=== PATIENT | female | born 1940 | race Caucasian/White ===

== ENCOUNTER 2021-11-23 09:30 | Outpatient (RCR) | payer MEDICARE, BC, SELFPAY | END 2022-01-28 11:10 | disposition home or self-care (01) | PROVIDERS: PCP Physician Assistant Medical; Visit Provider Physician Assistant Medical | DX: M48.061 Spinal stenosis, lumbar region without neurogenic claudication (principal); Z51.89 Encounter for other specified aftercare | CPT/HCPCS: 97110; 97140 ==

== ENCOUNTER 2021-11-24 09:37 | Outpatient (CLI) | payer MEDICARE, BC, SELFPAY | END 2021-11-24 09:38 | disposition home or self-care (01) | LOC: INJ CL 09:38 | PROVIDERS: PCP Physician Assistant Medical; Visit Provider Family Medicine | DX: M48.062 Spinal stenosis, lumbar region with neurogenic claudication (principal); M54.16 Radiculopathy, lumbar region | CPT/HCPCS: 64483; J1100; Q9966 ==

== ENCOUNTER 2023-03-28 14:30 | Outpatient (RCR) | payer MEDICARE, BC, SELFPAY | END 2023-07-18 16:48 | disposition home or self-care (01) | PROVIDERS: PCP Physician Assistant Medical; Visit Provider Physician Assistant Medical | DX: M51.16 Intervertebral disc disorders with radiculopathy, lumbar region (principal); R26.81 Unsteadiness on feet; R53.1 Weakness; R52 Pain, unspecified; Z51.89 Encounter for other specified aftercare | CPT/HCPCS: 97110; 97162 ==

== ENCOUNTER 2024-03-01 13:45 | Outpatient (RCR) | payer MEDICARE, BC, SELFPAY ==
--- OUTSIDE RECORDS SUMMARY | 2024-02-14 15:01 | XMS_ITS | Continuity of Care Document ---
Author Organization [facility] [place] Address [address] [place] [address] Assessment No assessment recorded. Plan of Treatment Reminders Order Date Submit Date Provider Last Modified By Organization Details Last Modified Time Details Appointments DC Treatment 20 2023 02:20P M Sola Cisneros DC Not available Not available Not available DC Treatment 2024 02:00P M Sola Cisneros DC Not available Not available Not available Lab None recorded. Referral None recorded. Procedures None recorded. Surgeries None recorded. Imaging None recorded. Medication Orders None recorded. Patient TargetsNo targets recorded. Patient Instructions Encounter Date Encounter Id Patient Instructions Last Modified By Organization Details Last Modified Time 01/18/2024 [id number] functional goals : increase ROM to wnl, 55% decrease pain when sitting for 60 minutes to 1-2/10, 45 minutes decrease geraldo when standing for 60 minutes to 1-2/10, 40 minutes decrease pain when transitioning from sitting to standing to 1-2/10, 4-5/10 [email or web address] Not available 01/18/2024 13:50:29 Reason for Referral None Reported. Problems Name Problem SNOMED Code Status Onset Date Resolution Date Notes Provider Name and Address Organization Details Recorded Time Neck pain 85184060 Active 2023 Sola Cisneros DC [address], [place], [address], [facility] 4 14:35:25 Cervical segmental dysfunction 084624562 Active 2023 Sola Cisneros DC [address], [place], [address], [facility] 4 14:35:25 Lumbar segmental dysfunction 650915264 Active 2023 Sola Cisneros DC [address], [place], [address], [facility] 4 18:13:38 Low back pain 903892861 Active 2023 Sola Cisneros DC [address], [place], [address], [facility] 4 18:13:40 Somatic dysfunction of sacral spine 931952337 Active 2023 Sola Cisneros DC [address], [place], [address], [facility] 4 18:13:43 Thoracic segmental dysfunction 063043073 Active 2023 Sola Cisneros DC [address], [place], [address], [facility] 4 18:13:47 Thoracic back pain 478501162 Active 2023 Sola Cisneros DC [address], [place], [address], [facility] 4 18:13:49 Problem Notes None recorded. Procedures Surgical History Date Name Laterality Status Provider Name and Address Organization Details Recorded Time 4 41408: Spinal manipulation , 3 to 4 regions completed CASH BRIGGS, ED [address], [place], [address], [facility] 01/31/2024 09:01:39 4 23455: Spinal manipulation , 3 to 4 regions completed Sola Amelia ED [address], [place], [address], [facility] 01/18/2024 13:29:35 4 43685: Spinal manipulation , 3 to 4 regions completed Sola Amelia, DC [address], [place], [address], [facility] 01/11/2024 10:26:34 4 68909: Spinal manipulation , 3 to 4 regions completed Sola Cisneros DC [address], [place], [address], [facility] 01/04/2024 11:54:22 4 32660: Spinal manipulation , 3 to 4 regions completed Sola Magnani, DC [address], [place], [address], [facility] 12/23/2023 10:22:43 4 40858: Spinal manipulation , 3 to 4 regions completed Sola Magnani, DC [address], [place], [address], [facility] 12/01/2023 10:26:04 4 80907: Spinal manipulation , 3 to 4 regions completed Sola Magnani, DC [address], [place], [address], [facility] 11/17/2023 13:17:18 4 65338: Spinal manipulation , 3 to 4 regions completed Sola Magnani, DC [address], [place], [address], [facility] 10/27/2023 14:35:24 4 69414: Spinal manipulation , 3 to 4 regions completed Sola Magnani, DC [address], [place], [address], [facility] 09/08/2023 10:41:24 4 59968: Spinal manipulation , 3 to 4 regions completed Sola Magnani, DC [address], [place], [address], [facility] 08/24/2023 12:43:44 4 71378: Spinal manipulation , 3 to 4 regions completed Sola Magnani, DC [address], [place], [address], [facility] 08/17/2023 12:40:41 35880: Spinal manipulation , 3 to 4 regions completed Sola Magnani, DC [address], [place], [address], [facility] 08/12/2023 11:53:41 4 11069: New patient E/M completed Sola Magnani, DC [address], [place], [address], [facility] 08/12/2023 12:00:35 Imaging Results None recorded. Procedure Notes None recorded. Medical Equipment None Reported. Medications Name Sig Start Date Stop Date Status Note LastModified by Organization Details LastModified Time doxycycline hyclate 100 mg capsule TAKE ONE CAPSULE BY MOUTH TWICE A DAY FOR 7 DAYS active Not Available Not Available No t Available prednisone 20 mg tablet FOR COUGH 3 TABLETS BY MOUTH SINGLE DOSE DAYS 1-2 THEN 2TABS SINGLE DOSE FOR DAYS 3-4 THEN 1TAB BY MOUTH DAYS 5-6 THEN D/C active Not Available Not Available No t Available doxycycline monohydrate 100 mg tablet TAKE ONE TABLET BY MOUTH TWO TIMES A DAY BEFORE BREAKFAST AND DINNER FOR 10 DAYS active Not Available Not Available No t Available tramadol 50 mg tablet TAKE ONE TABLET BY MOUTH THREE TIMES A DAY NEEDED FOR PAIN active Not Available Not Available No t Available simvastatin 40 mg tablet TAKE ONE TABLET BY MOUTH AT BEDTIME active Not Available Not Available No t Available levothyroxine 88 mcg tablet TAKE ONE TABLET BY MOUTH ONCE DAILY active Not Available Not Available No t Available citalopram 20 mg tablet TAKE 1&1/2 TABLETS BY MOUTH ONCE DAILY active Not Available Not Available No t Available doxycycline monohydrate 100 mg capsule TAKE ONE CAPSULE BY MOUTH TWO TIMES A DAY BEFORE MORNING AND EVENING MEALS FOR 7 DAYS active Not Available Not Available No t Available polymyxin B sulfate 10,000 unit-trimetho prim 1 mg/mL eye drops active Not Available Not Available No t Available bupropion HCl 75 mg tablet TAKE ONE TABLET BY MOUTH TWICE A DAY. DO NOT CRUSH OR CHEW. active Not Available Not Available No t Available triamterene 37.5 mg-hydrochlor othiazide 25 mg tablet TAKE ONE TABLET BY MOUTH EVERY MORNING active Not Available Not Available No t Available cefuroxime axetil 500 mg tablet TAKE ONE TABLET BY MOUTH TWICE A DAY FOR 10 DAYS active Not Available Not Available No t Available levofloxacin 500 mg tablet TAKE ONE TABLET BY MOUTH ONCE DAILY FOR 7 DAYS active Not Available Not Available No t Available albuterol sulfate HFA 90 mcg/actuation aerosol inhaler INHALE TWO PUFFS BY MOUTH EVERY 6 HOURS NEEDED FOR SHORTNESS OF BREATH OR WHEEZING active Not Available Not Available No t Available cefdinir 300 mg capsule TAKE ONE CAPSULE BY MOUTH EVERY 12 HOURS FOR 10 DAYS active Not Available Not Available No t Available fluticasone propionate 50 mcg/actuation nasal spray,suspens ion APPLY TWO SPRAYS IN THE AFFECTED NOSTRIL(S) EVERY DAY active Not Available Not Available No t Available metformin ER 500 mg tablet,extend ed release 24 hr TAKE ONE TABLET BY MOUTH ONCE DAILY WITH A MEAL active Not Available Not Available No t Available duloxetine 30 mg capsule,delay ed release TAKE ONE CAPSULE BY MOUTH ONCE DAILY FOR 2 WEEKS, THEN INCREASE TO TWO CAPSULES DAILY active Not Available Not Available No t Available duloxetine 60 mg capsule,delay ed release TAKE ONE CAPSULE BY MOUTH ONCE DAILY IN ADDITION TO 30MG CAPSULE active Not Available Not Available No t Available Vitals None Recorded Social History None recorded. Functional Status None recorded. Mental Status None recorded. Family History Nothing Reported. Medical History No medical history recorded. Gynecological HistoryNo gynecological history recorded. Obstetrics History GPAL:G 0 P 0 0 0 0 Past Encounters Encounter ID Performer Location Encounter Start Date Encounter Closed Date Diagnosis/Indication Diagnosis SNOMED-CT Code Diagnosis ICD10 Code [id number] [facility] [place] [address] [place] [address] 12/23/2023 12:34:59 12/23/2023 13:12:52 Lumbar segmental dysfunction 271787723 M99.03 Low back pain 790389281 M54.50 Somatic dy sfunction of sacral spine 143404466 M99.04 Thoracic s egmental dysfunction 173822691 M99.02 Thoracic back pain 73379 8004 M54.6 [id number] Sola Cisneros DC [facility] [place] [address] [place] [address] 01/04/2024 11:53:13 01/05/2024 21:22:58 Lumbar segmental dysfunction 156623298 M99.03 Low back pain 703593089 M54.50 Somatic dy sfunction of sacral spine 089009737 M99.04 Thoracic s egmental dysfunction 085814865 M99.02 Thoracic back pain 26263 8004 M54.6 [id number] Sola Cisneros DC [facility] [place] [address] [place] [address] 01/11/2024 12:06:16 01/11/2024 12:30:47 Lumbar segmental dysfunction 843518264 M99.03 Low back pain 524001576 M54.50 Somatic dy sfunction of sacral spine 989377938 M99.04 Thoracic s egmental dysfunction 959097983 M99.02 Thoracic back pain 31688 8004 M54.6 Cervical s egmental dysfunction 014269706 M99.01 [id number] Sola Cisneros DC [facility] [place] [address] [place] [address] 01/18/2024 13:29:02 01/18/2024 13:51:09 Lumbar segmental dysfunction 293478097 M99.03 Low back pain 519726712 M54.50 Somatic dy sfunction of sacral spine 807249523 M99.04 Thoracic s egmental dysfunction 031832673 M99.02 Thoracic back pain 23641 8004 M54.6 Health Concerns Section Related Observation LastModified by Organization Detai ls LastModified Time None Recorded Concern Status LastModified by Organization Details LastModified Time None Recorded Payers Encounter Date Sequence Insurance Name Policy Number Policy Sullivan Covered Member ID Sullivan Member ID Guarantor Name 01/18/2024 1 [place] [id number] Maddy Disla [id number] 5 Maddy Disla 01/18/2024 2 [facility] [id number] Maddy Disla [id number] Maddy Disla Notes Date Note Type Note Provider Name and Address Organization Details Recorded Time 01/18/2024 text/html HPI - Spine ComplaintsReported bypatient.Location:thor acic bilateral; lumbar bilateral; sacral bilateral Quality:dull; stiffness; tender; tightness; diffuse; changes with positional changes Severity:improving;pain level 3-4/10 Duration:several weeks Timing:chronic; recurrent episode Context:overuse; prior back problems Alleviating Factors:heat; OTC analgesics; physical therapy; stretching Aggravating Factors:ambulation; sitting; standing; positional changes Associated Symptoms:no bowel dysfunction; no bladder dysfunction; notes balance issues Prior Imaging:MRI; xray long history of back and hip pain. has had imaging and has stenosis but trying to avoid surgery. has seen chiropractors in the past with not much improvement. has been able to go upstairs with less difficulty and less weakness. less achiness in the SI joints and buttock region. has never had injections in the SI joints. a bit of a flare up after riding in the car for several hours Sola Cisneros, ED [address], [place], [address], [facility] 01/18/2024 13:50:58 OBGyn Episode No OBEpisode recorded.
--- OUTSIDE RECORDS SUMMARY | 2024-02-14 15:01 | XMS_ITS | Continuity of Care Document ---
Author Organization [facility] [place] Address [address] [place] [address] Assessment No assessment recorded. Plan of Treatment [...] Modified By Organization Details Last Modified Time 02/01/2024 [id number] functional goals : increase ROM to wnl, 55% decrease pain when sitting for 60 minutes to 1-2/10, 45 minutes decrease geraldo when standing for 60 minutes to 1-2/10, 40 minutes decrease pain when transitioning from sitting to standing to 1-2/10, 4-5/10 [email or web address] Not available 01/31/2024 09:01:39 Reason for Referral None Reported. Problems Name Problem SNOMED Code Status Onset Date Resolution Date Notes Provider Name and Address Organization Details Recorded Time Neck pain 13638331 Active 2023 Sola Cisneros DC [address], [place], [address], [facility] 4 14:35:25 Cervical segmental dysfunction 317838864 Active 2023 Sola Cisneros DC [address], [place], [address], [facility] 4 14:35:25 Lumbar segmental dysfunction 525435002 Active 2023 Sola Cisneros, DC [address], [place], [address], [facility] 4 18:13:38 Low back pain 744867109 Active 2023 Sola Cisneros, DC [address], [place], [address], [facility] 4 18:13:40 Somatic dysfunction of sacral spine 922625507 Active 2023 Sola Cisneros, DC [address], [place], [address], [facility] 4 18:13:43 Thoracic segmental dysfunction 219411395 Active 2023 Sola Cisneros DC [address], [place], [address], [facility] 4 18:13:47 Thoracic back pain 471014856 Active 2023 Sola Cisneros DC [address], [place], [address], [facility] 4 18:13:49 Problem Notes None recorded. Procedures Surgical History Date Name Laterality Status Provider Name and Address Organization Details Recorded Time 4 33299: Spinal manipulation , 3 to 4 regions completed CASH BRIGGS, ED [address], [place], [address], [facility] 01/31/2024 09:01:39 4 43226: Spinal manipulation , 3 to 4 regions completed Sola Amelia, DC [address], [place], [address], [facility] 01/18/2024 13:29:35 4 57865: Spinal manipulation , 3 to 4 regions completed Solakim Cisneros, DC [address], [place], [address], [facility] 01/11/2024 10:26:34 4 14026: Spinal manipulation , 3 to 4 regions completed Sola Cisneros DC [address], [place], [address], [facility] 01/04/2024 11:54:22 4 25626: Spinal manipulation , 3 to 4 regions completed Sola Magnani, DC [address], [place], [address], [facility] 12/23/2023 10:22:43 4 72846: Spinal manipulation , 3 to 4 regions completed Sola Magnani, DC [address], [place], [address], [facility] 12/01/2023 10:26:04 4 82167: Spinal manipulation , 3 to 4 regions completed Sola Magnani, DC [address], [place], [address], [facility] 11/17/2023 13:17:18 4 53202: Spinal manipulation , 3 to 4 regions completed Sola Magnani, DC [address], [place], [address], [facility] 10/27/2023 14:35:24 4 27875: Spinal manipulation , 3 to 4 regions completed Sola Magnani, DC [address], [place], [address], [facility] 09/08/2023 10:41:24 4 78061: Spinal manipulation , 3 to 4 regions completed Sola Magnani, DC [address], [place], [address], [facility] 08/24/2023 12:43:44 4 69069: Spinal manipulation , 3 to 4 regions completed Sola Magnani, DC [address], [place], [address], [facility] 08/17/2023 12:40:41 4 29742: Spinal manipulation , 3 to 4 regions completed Sola Magnani, DC [address], [place], [address], [facility] 08/12/2023 11:53:41 4 77256: New patient E/M completed Sola Magnani, DC [address], [place], [address], [facility] 08/12/2023 12:00:35 Imaging Results None recorded. Procedure [...] Diagnosis/Indication Diagnosis SNOMED-CT Code Diagnosis ICD10 Code [id number] Sola Cisneros DC [facility] [place] [address] [address] [place] [address] 01/04/2024 11:53:13 01/05/2024 21:22:58 Lumbar segmental dysfunction 603064700 M99.03 Low back pain 298318510 M54.50 Somatic dy sfunction of sacral spine 488530735 M99.04 Thoracic s egmental dysfunction 254417368 M99.02 Thoracic back pain 07716 8004 M54.6 [id number] Sola Cisneros DC [facility] [place] [address],[facility] [address] [place] [address] 01/11/2024 12:06:16 01/11/2024 12:30:47 Lumbar segmental dysfunction 144467100 M99.03 Low back pain 568577172 M54.50 Somatic dy sfunction of sacral spine 080218125 M99.04 Thoracic s egmental dysfunction 415236381 M99.02 Thoracic back pain 66913 8004 M54.6 Cervical s egmental dysfunction 946276341 M99.01 [id number] Sola Cisneros DC [facility] [place] [address] [place] [address] 01/18/2024 13:29:02 01/18/2024 13:51:09 Lumbar segmental dysfunction 500859830 M99.03 Low back pain 508809705 M54.50 Somatic dy sfunction of sacral spine 750072992 M99.04 Thoracic s egmental dysfunction 623340768 M99.02 Thoracic back pain 33671 8004 M54.6 [id number] CASH BRIGGS DC [facility] [place] [address] [place] [address] 02/01/2024 12:57:48 02/01/2024 13:17:16 Lumbar segmental dysfunction 500777773 M99.03 Low back pain 072659491 M54.50 Somatic dy sfunction of sacral spine 609332550 M99.04 Thoracic s egmental dysfunction 193009585 M99.02 Thoracic back pain 99668 8004 M54.6 Health Concerns Section Related Observation LastModified by Organization Detai ls LastModified Time None Recorded Concern Status LastModified by Organization Details LastModified Time None Recorded Payers Encounter Date Sequence Insurance Name Policy Number Policy Sullivan Covered Member ID Sullivan Member ID Guarantor Name 02/01/2024 1 [place] [employer] Maddy Disla [id number] 5 Maddy Disla 02/01/2024 2 [facility] [id number] Maddy Disla [id number] Maddy Disla Notes Date Note Type Note Provider Name and Address Organization Details Recorded Time 02/01/2024 text/html HPI - Spine ComplaintsReported bypatient.Location:thor acic [...] never had injections in the SI joints. CASH BRIGGS [address], [place], [address], [facility] 02/01/2024 13:17:08 OBGyn Episode No OBEpisode recorded.
--- OUTSIDE RECORDS SUMMARY | 2024-02-14 15:01 | XMS_ITS | Data Portability ---
Author Organization [place] - [employer] claire [facility] Address [address] [place] [address] Assessment No assessment recorded. Plan of Treatment Reminders Order Date Submit Date Provider Last Modified By Organization Details Last Modified Time Details Appointments DC Treatment 2023 02:20P M Sola Cisneros DC Not available Not available Not available DC Treatment 2024 02:00P Basilio Sola Cisneros DC Not available Not available Not available Lab None recorded. Referral None recorded. Procedures None recorded. Surgeries None recorded. Imaging None recorded. Medication Orders None recorded. Patient TargetsNo targets recorded. Patient Instructions Encounter Date Encounter Id Patient Instructions Last Modified By Organization Details Last Modified Time 12/23/2023 [id number] functional goals : increase ROM to wnl, 50% decrease pain when sitting for 60 minutes to 1-2/10, 35 minutes decrease geraldo when standing for 60 minutes to 1-2/10, 35 minutes decrease pain when transitioning from sitting to standing to 1-2/10, 4-6/10 [email or web address] Not available 12/23/2023 13:12:09 01/04/2024 [id number] functional goals : increase ROM to wnl, 50% decrease pain when sitting for 60 minutes to 1-2/10, 40 minutes decrease geraldo when standing for 60 minutes to 1-2/10, 35 minutes decrease pain when transitioning from sitting to standing to 1-2/10, 4-5/10 [email or web address] Not available 01/05/2024 21:21:52 01/11/2024 [id number] functional goals : increase ROM to wnl, 50% decrease pain when sitting for 60 minutes to 1-2/10, 40 minutes decrease geraldo when standing for 60 minutes to 1-2/10, 35 minutes decrease pain when transitioning from sitting to standing to 1-2/10, 4-5/10 mmagnani Not available 01/11/2024 10:26:34 01/18/2024 [id number] functional goals : increase ROM to wnl, 55% decrease pain when sitting for 60 minutes to 1-2/10, 45 minutes decrease geraldo when standing for 60 minutes to 1-2/10, 40 minutes decrease pain when transitioning from sitting to standing to 1-2/10, 4-5/10 [email or web address] Not available 01/18/2024 13:50:29 02/01/2024 [id number] functional goals : increase ROM to wnl, 55% decrease pain when sitting for 60 minutes to 1-2/10, 45 minutes decrease geraldo when standing for 60 minutes to 1-2/10, 40 minutes decrease pain when transitioning from sitting to standing to 1-2/10, 4-5/10 [email or web address] Not available 01/31/2024 09:01:39 Reason for Referral None Reported. Problems Name Problem SNOMED Code Status Onset Date Resolution Date Notes Provider Name and Address Organization Details Recorded Time Neck pain 05557518 Active 2023 Sola Cisneros DC [address], [place], [address], Pending sale to [facility] 4 14:35:25 Cervical segmental dysfunction 101544134 Active 2023 Sola Cisneros DC [address], [place], [address], Pending sale to [facility] 4 14:35:25 Lumbar segmental dysfunction 575459871 Active 2023 Sola Cisneros DC [address], [place], [address], Pending sale to [facility] 4 18:13:38 Low back pain 800824059 Active 2023 Sola Cisneros DC [address], [place], [address], Pending sale to [facility] 4 18:13:40 Somatic dysfunction of sacral spine 822845304 Active 2023 Sola Cisneros DC [address], [place], [address], Pending sale to [facility] 4 18:13:43 Thoracic segmental dysfunction 877497969 Active 2023 Sola Neftalynatalia, DC [address], [place], [address], Pending sale to [facility] 4 18:13:47 Thoracic back pain 044488092 Active 2023 Solakim Cisneros, DC [address], [place], [address], Pending sale to [facility] 4 18:13:49 Problem Notes None recorded. Procedures Surgical History Date Name Laterality Status Provider Name and Address Organization Details Recorded Time 4 21159: Spinal manipulation , 3 to 4 regions completed CASH BRIGGS, DC [address], [place], [address], Pending sale to [facility] 01/31/2024 09:01:39 4 37923: Spinal manipulation , 3 to 4 regions completed Sola Cisneros, DC [address], [place], [address], Pending sale to [facility] 01/18/2024 13:29:35 4 65998: Spinal manipulation , 3 to 4 regions completed Sola Magnani, DC [address], [place], [address], Pending sale to [facility] 01/11/2024 10:26:34 4 02159: Spinal manipulation , 3 to 4 regions completed Sola Cisneros, DC [address], [place], [address], Pending sale to [facility] 01/04/2024 11:54:22 4 22719: Spinal manipulation , 3 to 4 regions completed Sola Magnani, DC [address], [place], [address], Pending sale to [facility] 12/23/2023 10:22:43 4 53435: Spinal manipulation , 3 to 4 regions completed Sola Magnani, DC [address], [place], [address], Pending sale to [facility] 12/01/2023 10:26:04 4 80202: Spinal manipulation , 3 to 4 regions completed Sola Magnani, DC [address], [place], [address], Pending sale to [facility] 11/17/2023 13:17:18 4 74179: Spinal manipulation , 3 to 4 regions completed Soal Cisneros DC [address], [place], [address], Pending sale to [facility] 10/27/2023 14:35:24 4 41890: Spinal manipulation , 3 to 4 regions completed Sola Cisneros, ED [address], [place], [address], Pending sale to [facility] 09/08/2023 10:41:24 4 83874: Spinal manipulation , 3 to 4 regions completed Sola Cisneros, ED [address], [place], [address], Pending sale to [facility] 08/24/2023 12:43:44 4 28214: Spinal manipulation , 3 to 4 regions completed Sola Cisneros, ED [address], [place], [address], Pending sale to [facility] 08/17/2023 12:40:41 4 70857: Spinal manipulation , 3 to 4 regions completed ED [address], [place], [address], Pending sale to [facility] 08/12/2023 11:53:41 4 46827: New patient E/M completed Sola Cisneros DC [address], [place], [address], Pending sale to [facility] 08/12/2023 12:00:35 Imaging Results None recorded. Procedure [...] Diagnosis/Indication Diagnosis SNOMED-CT Code Diagnosis ICD10 Code [id number] Sola ED Cisneros - [place] [address] [place] [address] 08/12/2023 11:49:22 08/14/2023 18:15:18 Thoracic segmental dysfunction 772619996 M99.02 Lumbar seg mental dysfunction 436202461 M99.03 Low back pain 328073096 M54.50 Somatic dy sfunction of sacral spine 179906242 M99.04 Thoracic back pain 76934 8004 M54.6 [id number] ED RouseN - [place] [address] [place] [address] 08/17/2023 12:39:19 08/17/2023 14:53:13 Thoracic segmental dysfunction 058540514 M99.02 Lumbar seg mental dysfunction 477042467 M99.03 Low back pain 857995907 M54.50 Somatic dy sfunction of sacral spine 634087125 M99.04 Thoracic back pain 27553 8004 M54.6 [id number] ED RouseN - [place] [address] [place] [address] 08/24/2023 12:41:05 08/24/2023 15:37:56 Thoracic segmental dysfunction 074489114 M99.02 Lumbar seg mental dysfunction 256535362 M99.03 Low back pain 430575841 M54.50 Somatic dy sfunction of sacral spine 622867597 M99.04 Thoracic back pain 73382 8004 M54.6 [id number] ED RouseN - [place] [address] [place] [address] 09/08/2023 10:40:07 09/08/2023 15:55:35 Thoracic segmental dysfunction 963870800 M99.02 Lumbar seg mental dysfunction 831127171 M99.03 Low back pain 862452520 M54.50 Somatic dy sfunction of sacral spine 285221951 M99.04 Thoracic back pain 01549 8004 M54.6 [id number] Sola Cisneros DC [facility] - [place] [address] [place] [address] 10/27/2023 14:32:32 11/02/2023 12:54:59 Thoracic segmental dysfunction 415525377 M99.02 Lumbar seg mental dysfunction 813876901 M99.03 Low back pain 320961430 M54.50 Somatic dy sfunction of sacral spine 129949589 M99.04 Thoracic back pain 04727 8004 M54.6 [id number] Sola Cisneros DC [facility] - [place] [address] [place] [address] 11/17/2023 11:46:22 11/17/2023 13:19:21 Lumbar segmental dysfunction 678727758 M99.03 Low back pain 806156029 M54.50 Somatic dy sfunction of sacral spine 283785025 M99.04 Thoracic s egmental dysfunction 667335743 M99.02 Thoracic back pain 59882 8004 M54.6 27594 Sola Cisneros DC [facility] - [place] [address] [place] [address] 12/01/2023 15:46:42 12/01/2023 21:45:03 Lumbar segmental dysfunction 402078867 M99.03 Low back pain 817915624 M54.50 Somatic dy sfunction of sacral spine 983573914 M99.04 Thoracic s egmental dysfunction 288214258 M99.02 Thoracic back pain 66075 8004 M54.6 [id number] [facility] [place] [address] [place] [address] 12/23/2023 12:34:59 12/23/2023 13:12:52 Lumbar segmental dysfunction 688565342 M99.03 Low back pain 276495230 M54.50 Somatic dy sfunction of sacral spine 296141715 M99.04 Thoracic s egmental dysfunction 469399069 M99.02 Thoracic back pain 23002 8004 M54.6 [id number] ED RouseN - [place] [address] [place] [address] 01/04/2024 11:53:13 01/05/2024 21:22:58 Lumbar segmental dysfunction 168368008 M99.03 Low back pain 952651648 M54.50 Somatic dy sfunction of sacral spine 762298088 M99.04 Thoracic s egmental dysfunction 837796428 M99.02 Thoracic back pain 85150 8004 M54.6 [id number] [facility]ola [facility]neros [facility] [place] [address] [place] [address] 01/11/2024 12:06:16 01/11/2024 12:30:47 Lumbar segmental dysfunction 617496056 M99.03 Low back pain 673543665 M54.50 Somatic dy sfunction of sacral spine 896718889 M99.04 Thoracic s egmental dysfunction 555954043 M99.02 Thoracic back pain 25119 8004 M54.6 Cervical s egmental dysfunction 989128127 M99.01 [id number] [facility]ola [facility]neros [facility] [place] [address] [place] [address] 01/18/2024 13:29:02 01/18/2024 13:51:09 Lumbar segmental dysfunction 518022112 M99.03 Low back pain 798819424 M54.50 Somatic dy sfunction of sacral spine 272058614 M99.04 Thoracic s egmental dysfunction 139060516 M99.02 Thoracic back pain 06644 8004 M54.6 [id number] CASH BRIGGS [facility] [place] [address] [place] [address] 02/01/2024 12:57:48 02/01/2024 13:17:16 Lumbar segmental dysfunction 616454478 M99.03 Low back pain 825363832 M54.50 Somatic dy sfunction of sacral spine 704978429 M99.04 Thoracic s egmental dysfunction 275836889 M99.02 Thoracic back pain 88478 8004 M54.6 Health Concerns Section Related Observation LastModified by Organization Detai ls LastModified Time None Recorded Concern Status LastModified by Organization Details LastModified Time None Recorded Advance Directives Directive None Recorded Payers Encounter Date Sequence Insurance Name Policy Number Policy Sullivan Covered Member ID Sullivan Member ID Guarantor Name 12/23/2023 1 [place]: [facility] [employer] Maddy Trinh Naif [id number] Maddy Naif 12/23/2023 2 [place] [id number] Maddy B Naif [id number] Maddy Naif 01/04/2024 1 [place] [facility] Maddy B Naif [id number] Maddy Naif 01/04/2024 2 [place] [id number] Maddy B Naif [id number] Maddy Naif 01/11/2024 1 [place] [facility] Maddy B Naif [id number] Maddy Naif 01/11/2024 2 [place] [id number] Maddy B Naif [id number] Maddy Naif 01/18/2024 1 [place] [facility] [employer] [facility] Maddy B Naif [id number] Maddy Naif 01/18/2024 2 [place] [id number] Maddy B Naif [id number] Maddy Naif 02/01/2024 1 [place] [facility] [employer] [facility] Maddy B Naif [id number] Maddy Naif 02/01/2024 2 [place] [id number] Maddy B Naif [id number] Maddy Naif Notes Date Note Type Note Provider Name and Address Organization Details Recorded Time 12/23/2023 text/html HPI - Spine ComplaintsReported bypatient.Location:thor acic bilateral; lumbar bilateral; sacral bilateral Quality:dull; stiffness; tender; tightness; diffuse; changes with positional changes Severity:worsening;pain level 4-5/10; sleep improved after last visit, only one episode of the pain level at a 6/10 Duration:several weeks Timing:chronic; recurrent episode Context:overuse; prior [...] upstairs with less difficulty and less weakness. more achiness in the SI joints and buttock region. has never had injections in the SI joints Sola Cisneros DC [address], [place], [address], [facility] [employer] [facility] 12/23/2023 13:12:39 01/04/2024 text/html HPI - Spine ComplaintsReported bypatient.Location:thor acic bilateral; lumbar bilateral; sacral bilateral Quality:dull; stiffness; tender; tightness; diffuse; changes with positional changes Severity:improving;pain level 4/10; sleep improved after last visit, only one episode of the pain level at a 6/10 Duration:several weeks Timing:chronic; recurrent episode Context:overuse; prior [...] upstairs with less difficulty and less weakness. more achiness in the SI joints and buttock region. has never had injections in the SI joints Sola Cisneros DC [address], [place], [address], [facility] [employer] [facility] 01/05/2024 21:22:19 01/11/2024 text/html HPI - Spine ComplaintsReported bypatient.Location:thor acic bilateral; lumbar bilateral; sacral bilateral Quality:dull; stiffness; tender; tightness; diffuse; changes with positional changes Severity:improving;pain level 3-4/10; sleep improved after last visit, only one episode of the pain level at a 6/10 Duration:several weeks Timing:chronic; recurrent episode Context:overuse; prior [...] has never had injections in the SI joints Sola Cisneros DC [address], [place], [address], Pending sale to [facility] 01/11/2024 12:29:50 01/18/2024 text/html HPI - Spine ComplaintsReported bypatient.Location:thor [...] in the car for several hours Sola Cisneros DC [address], [place], [address], [facility] [employer] [facility] 01/18/2024 13:50:58 02/01/2024 text/html HPI - Spine ComplaintsReported bypatient.Location:thor [...] in the SI joints. CASH BRIGGS DC [facility] [address], [place], [address], Pending sale to [facility] 02/01/2024 13:17:08 OBGyn Episode No OBEpisode recorded.
--- OUTSIDE RECORDS SUMMARY | 2024-02-14 15:02 | XMS_ITS | Continuity of Care Document ---
Author Organization [facility] APOLINAR claire - [place] Address [address] [place] [address] Assessment No assessment recorded. Plan of Treatment [...] Modified By Organization Details Last Modified Time 01/11/2024 [id number] functional goals : increase ROM to wnl, 50% decrease pain when sitting for 60 minutes to 1-2/10, 40 minutes decrease geraldo when standing for 60 minutes to 1-2/10, 35 minutes decrease pain when transitioning from sitting to standing to 1-2/10, 4-5/10 mmagnani Not available 01/11/2024 10:26:34 Reason for Referral None Reported. Problems Name Problem SNOMED Code Status Onset Date Resolution Date Notes Provider Name and Address Organization Details Recorded Time Neck pain 53554492 Active 2023 Sola Cisneros DC [address], [place], [address], [facility] 4 14:35:25 Cervical segmental dysfunction 956642085 Active 2023 Sola Cisneros DC [address], [place], [address], [facility] 4 14:35:25 Lumbar segmental dysfunction 910050368 Active 2023 Sola Cisneros DC [address], [place], [address], [facility] 4 18:13:38 Low back pain 360839374 Active 2023 Sola Cisneros DC [address], [place], [address], [facility] 4 18:13:40 Somatic dysfunction of sacral spine 149859363 Active 2023 Sola Cisneros DC [address], [place], [address], [facility] 4 18:13:43 Thoracic segmental dysfunction 301201527 Active 2023 Sola Cisneros DC [address], [place], [address], [facility] 4 18:13:47 Thoracic back pain 080008455 Active 2023 Sola Cisneros DC [address], [place], [address], [facility] 4 18:13:49 Problem Notes None recorded. Procedures Surgical History Date Name Laterality Status Provider Name and Address Organization Details Recorded Time 4 07165: Spinal manipulation , 3 to 4 regions completed CASH BRIGGS, ED [address], [place], [address], [facility] 01/31/2024 09:01:39 4 88998: Spinal manipulation , 3 to 4 regions completed Sola Amelia ED [address], [place], [address], [facility] 01/18/2024 13:29:35 4 58003: Spinal manipulation , 3 to 4 regions completed Sola Neftalynatalia DC [address], [place], [place], [address], [facility] 01/11/2024 10:26:34 4 60619: Spinal manipulation , 3 to 4 regions completed Sola Cisneros DC [address], [place], [address], [facility] 01/04/2024 11:54:22 4 90193: Spinal manipulation , 3 to 4 regions completed Sola Magnani, DC [address], [place], [address], [facility] 12/23/2023 10:22:43 4 69815: Spinal manipulation , 3 to 4 regions completed Sola Magnani, DC [address], [place], [address], [facility] 12/01/2023 10:26:04 4 54090: Spinal manipulation , 3 to 4 regions completed Sola Magnani, DC [address], [place], [address], [facility] 11/17/2023 13:17:18 4 18523: Spinal manipulation , 3 to 4 regions completed Sola Magnani, DC [address], [place], [address], [facility] 10/27/2023 14:35:24 4 45337: Spinal manipulation , 3 to 4 regions completed Sola Magnani, DC [address], [place], [address], [facility] 09/08/2023 10:41:24 4 84651: Spinal manipulation , 3 to 4 regions completed Sola Magnani, DC [address], [place], [address], [facility] 08/24/2023 12:43:44 4 49314: Spinal manipulation , 3 to 4 regions completed Sola Magnani, DC [address], [place], [address], [facility] 08/17/2023 12:40:41 4 68374: Spinal manipulation , 3 to 4 regions completed Sola Magnani, DC [address], [place], [address], [facility] 08/12/2023 11:53:41 4 81129: New patient E/M completed Sola Magnani, DC [address], [place], [address], [facility] 08/12/2023 12:00:35 Imaging Results None recorded. Procedure [...] Diagnosis/Indication Diagnosis SNOMED-CT Code Diagnosis ICD10 Code [id number] ED RouseJorge - [place] [address] [place] [address] 12/23/2023 12:34:59 12/23/2023 13:12:52 Lumbar segmental dysfunction 465242673 M99.03 Low back pain 570335493 M54.50 Somatic dy sfunction of sacral spine 485281943 M99.04 Thoracic s egmental dysfunction 800603296 M99.02 Thoracic back pain 85423 8004 M54.6 [id number] ED RouseN - [place] [address] [place] [address] 01/04/2024 11:53:13 01/05/2024 21:22:58 Lumbar segmental dysfunction 704407284 M99.03 Low back pain 562481568 M54.50 Somatic dy sfunction of sacral spine 717719304 M99.04 Thoracic s egmental dysfunction 562916671 M99.02 Thoracic back pain 97798 8004 M54.6 03294 ED RouseN - [place] [address] [place] [address] 01/11/2024 12:06:16 01/11/2024 12:30:47 Lumbar segmental dysfunction 411946203 M99.03 Low back pain 992882530 M54.50 Somatic dy sfunction of sacral spine 128608779 M99.04 Thoracic s egmental dysfunction 540591269 M99.02 Thoracic back pain 25354 8004 M54.6 Cervical s egmental dysfunction 077042171 M99.01 Health Concerns Section Related Observation LastModified by Organization Detai ls LastModified Time None Recorded Concern Status LastModified by Organization Details LastModified Time None Recorded Payers Encounter Date Sequence Insurance Name Policy Number Policy Sullivan Covered Member ID Sullivan Member ID Guarantor Name 01/11/2024 1 [place] [employer] Maddy Disla [id number] 5 Maddy Jovele 01/11/2024 2 [facility] [id number] Maddy Disla [id number] Maddy Disla Notes Date Note Type Note Provider Name and Address Organization Details Recorded Time 01/11/2024 text/html HPI - Spine ComplaintsReported bypatient.Location:thor [...] SI joints Sola Cisneros DC [address], [place], [address], [facility] 01/11/2024 12:29:50 OBGyn Episode No OBEpisode recorded.
--- OUTSIDE RECORDS SUMMARY | 2024-02-14 15:02 | XMS_ITS | Continuity of Care Document ---
Author Organization [facility] claire - [place] Address [address] [place] [address] Assessment No assessment recorded. Plan of Treatment [...] Modified By Organization Details Last Modified Time 12/01/2023 61978 functional goals : increase ROM to wnl, 60% decrease pain when sitting for 60 minutes to 1-2/10, 45 minutes decrease geraldo when standing for 60 minutes to 1-2/10, 45 minutes decrease pain when transitioning from sitting to standing to 1-2/10, 2-4/10 mmagnani Not available 12/01/2023 21:41:29 Reason for Referral None Reported. Problems Name Problem SNOMED Code Status Onset Date Resolution Date Notes Provider Name and Address Organization Details Recorded Time Neck pain 60289118 Active 2023 Sola Cisneros DC [address], [place], [address], [facility] 4 14:35:25 Cervical segmental dysfunction 074865776 Active 2023 Sola Cisneros DC [address], [place], [address], [facility] 4 14:35:25 Lumbar segmental dysfunction 875357793 Active 2023 Sola Cisneros DC [address], [place], [address], [facility] 4 18:13:38 Low back pain 149398203 Active 2023 Sola Cisneros [address], [place], [address], [facility] 4 18:13:40 Somatic dysfunction of sacral spine 078250997 Active 2023 Sola Cisneros [address], [place], [address], [facility] 4 18:13:43 Thoracic segmental dysfunction 770877481 Active 2023 Sola Cisneros DC [address], [place], [address], [facility] 4 18:13:47 Thoracic back pain 893625387 Active 2023 Sola Cisneros DC [address], [place], [address], [facility] 4 18:13:49 Problem Notes None recorded. Procedures Surgical History Date Name Laterality Status Provider Name and Address Organization Details Recorded Time 4 74254: Spinal manipulation , 3 to 4 regions completed CASH BRIGGS, ED [address], [place], [address], [facility] 01/31/2024 09:01:39 4 60296: Spinal manipulation , 3 to 4 regions completed Sola Amelia ED [address], [place], [address], [facility] 01/18/2024 13:29:35 4 03460: Spinal manipulation , 3 to 4 regions completed Sola Neftalynatalia DC [address], [place], [place], [address], [facility] 01/11/2024 10:26:34 4 99695: Spinal manipulation , 3 to 4 regions completed Sola Cisneros DC [address], [place], [address], [facility] 01/04/2024 11:54:22 4 35853: Spinal manipulation , 3 to 4 regions completed Sola Magnani, DC [address], [place], [address], [facility] 12/23/2023 10:22:43 4 89879: Spinal manipulation , 3 to 4 regions completed Sola Magnani, DC [address], [place], [address], [facility] 12/01/2023 10:26:04 4 08491: Spinal manipulation , 3 to 4 regions completed Sola Magnani, DC [address], [place], [address], [facility] 11/17/2023 13:17:18 4 40200: Spinal manipulation , 3 to 4 regions completed Sola Magnani, DC [address], [place], [address], [facility] 10/27/2023 14:35:24 4 29984: Spinal manipulation , 3 to 4 regions completed Sola Magnani, DC [address], [place], [address], [facility] 09/08/2023 10:41:24 4 56694: Spinal manipulation , 3 to 4 regions completed Sola Magnani, DC [address], [place], [address], [facility] 08/24/2023 12:43:44 4 42531: Spinal manipulation , 3 to 4 regions completed Sola Magnani, DC [address], [place], [address], [facility] 08/17/2023 12:40:41 4 43063: Spinal manipulation , 3 to 4 regions completed Sola Magnani, DC [address], [place], [address], [facility] 08/12/2023 11:53:41 4 79585: New patient E/M completed Sola Magnani, DC [address], [place], [address], [facility] 08/12/2023 12:00:35 Imaging Results None [...] Diagnosis/Indication Diagnosis SNOMED-CT Code Diagnosis ICD10 Code [id number] Sola Cisneros DC [employer] - [place] [address],[facility] [address] [place] [address] 11/17/2023 11:46:22 11/17/2023 13:19:21 Lumbar segmental dysfunction 709392671 M99.03 Low back pain 467226388 M54.50 Somatic dy sfunction of sacral spine 371503415 M99.04 Thoracic s egmental dysfunction 061506214 M99.02 Thoracic back pain 18163 8004 M54.6 [id number] Sola Cisneros DC [employer] - [place] [address],[facility] [address] [place] [address] 12/01/2023 15:46:42 12/01/2023 21:45:03 Lumbar segmental dysfunction 808679931 M99.03 Low back pain 402289313 M54.50 Somatic dy sfunction of sacral spine 190383341 M99.04 Thoracic s egmental dysfunction 787308533 M99.02 Thoracic back pain 73454 8004 M54.6 Health Concerns Section Related Observation LastModified by Organization Detai ls LastModified Time None Recorded Concern Status LastModified by Organization Details LastModified Time None Recorded Payers Encounter Date Sequence Insurance Name Policy Number Policy Sullivan Covered Member ID Sullivan Member ID Guarantor Name 12/01/2023 1 [place] [employer] [facility] Maddy Disla [id number] 5 Maddy Disla 12/01/2023 2 [facility] [id number] Maddy Disla [id number] Maddy Disla Notes Date Note Type Note Provider Name and Address Organization Details Recorded Time 12/01/2023 text/html HPI - Spine ComplaintsReported bypatient.Location:thor acic bilateral; lumbar bilateral; sacral bilateral Quality:dull; stiffness; tender; tightness; diffuse; changes with positional changes Severity:improving;pain level 2-4/10; sleep improved after last visit, only one [...] upstairs with less difficulty and less weakness. one episode of sharp pain after walking up. Sola Cisneros DC [address], [place], [address], [facility] 12/01/2023 21:42:00 OBGyn Episode No OBEpisode recorded.
--- OUTSIDE RECORDS SUMMARY | 2024-02-14 15:02 | XMS_ITS | Continuity of Care Document ---
Author Organization [facility] - [place] Address [address] [place] [address] Assessment No assessment recorded. Plan of Treatment [...] By Organization Details Last Modified Time 12/23/2023 79259 functional goals : increase ROM to wnl, 50% decrease pain when sitting for 60 minutes to 1-2/10, 35 minutes decrease geraldo when standing for 60 minutes to 1-2/10, 35 minutes decrease pain when transitioning from sitting to standing to 1-2/10, 4-6/10 mmagnani Not available 12/23/2023 13:12:09 Reason for Referral None Reported. Problems Name Problem SNOMED Code Status Onset Date Resolution Date Notes Provider Name and Address Organization Details Recorded Time Neck pain 28100898 Active 2023 Sola Cisneros DC [address], [place], [address], [facility] 4 14:35:25 Cervical segmental dysfunction 444190787 Active 2023 Sola Cisneros DC [address], [place], [address], [facility] 4 14:35:25 Lumbar segmental dysfunction 333712791 Active 2023 Sola Cisneros [address], [place], [address], [facility] 4 18:13:38 Low back pain 329219756 Active 2023 Sola Cisneros [address], [place], [address], [facility] 4 18:13:40 Somatic dysfunction of sacral spine 979534034 Active 2023 Sola Cisneros [address], [place], [address], [facility] 4 18:13:43 Thoracic segmental dysfunction 249780131 Active 2023 Sola Cisneros DC [address], [place], [address], [facility] 4 18:13:47 Thoracic back pain 477415157 Active 2023 Sola Cisneros DC [address], [place], [address], [facility] 4 18:13:49 Problem Notes None recorded. Procedures Surgical History Date Name Laterality Status Provider Name and Address Organization Details Recorded Time 4 18190: Spinal manipulation , 3 to 4 regions completed CASH BRIGGS, ED [address], [place], [address], [facility] 01/31/2024 09:01:39 4 21296: Spinal manipulation , 3 to 4 regions completed Sola Amelia ED [address], [place], [address], [facility] 01/18/2024 13:29:35 4 16223: Spinal manipulation , 3 to 4 regions completed Sola Neftalynatalia DC [address], [place], [place], [address], [facility] 01/11/2024 10:26:34 4 26426: Spinal manipulation , 3 to 4 regions completed Sola Cisneros DC [address], [place], [address], [facility] 01/04/2024 11:54:22 4 48909: Spinal manipulation , 3 to 4 regions completed Sola Magnani, DC [address], [place], [address], [facility] 12/23/2023 10:22:43 4 25521: Spinal manipulation , 3 to 4 regions completed Sola Magnani, DC [address], [place], [address], [facility] 12/01/2023 10:26:04 4 01825: Spinal manipulation , 3 to 4 regions completed Sola Magnani, DC [address], [place], [address], [facility] 11/17/2023 13:17:18 4 20066: Spinal manipulation , 3 to 4 regions completed Sola Magnani, DC [address], [place], [address], [facility] 10/27/2023 14:35:24 4 43462: Spinal manipulation , 3 to 4 regions completed Sola Magnani, DC [address], [place], [address], [facility] 09/08/2023 10:41:24 4 05596: Spinal manipulation , 3 to 4 regions completed Sola Magnani, DC [address], [place], [address], [facility] 08/24/2023 12:43:44 4 92297: Spinal manipulation , 3 to 4 regions completed Sola Magnani, DC [address], [place], [address], [facility] 08/17/2023 12:40:41 4 80519: Spinal manipulation , 3 to 4 regions completed Sola Magnani, DC [address], [place], [address], [facility] 08/12/2023 11:53:41 4 58880: New patient E/M completed Sola Magnani, DC [address], [place], [address], [facility] 08/12/2023 12:00:35 Imaging Results None recorded. Procedure [...] Diagnosis/Indication Diagnosis SNOMED-CT Code Diagnosis ICD10 Code [id number] Sola Cisneros DC [employer] - [place] [address],[facility] [address] [place] [address] 12/01/2023 15:46:42 12/01/2023 21:45:03 Lumbar segmental dysfunction 959811250 M99.03 Low back pain 339828764 M54.50 Somatic dy sfunction of sacral spine 362309183 M99.04 Thoracic s egmental dysfunction 401273206 M99.02 Thoracic back pain 81212 8004 M54.6 [id number] Sola Cisneros DC [employer] - [place] [address],[facility] [address] [place] [address] 12/23/2023 12:34:59 12/23/2023 13:12:52 Lumbar segmental dysfunction 127611525 M99.03 Low back pain 030862503 M54.50 Somatic dy sfunction of sacral spine 375504355 M99.04 Thoracic s egmental dysfunction 246628118 M99.02 Thoracic back pain 28714 8004 M54.6 Health Concerns Section Related Observation LastModified by Organization Detai ls LastModified Time None Recorded Concern Status LastModified by Organization Details LastModified Time None Recorded Payers Encounter Date Sequence Insurance Name Policy Number Policy Sullivan Covered Member ID Sullivan Member ID Guarantor Name 12/23/2023 1 [place] [employer] [facility] Maddy Disla [id number] 5 Maddy Disla 12/23/2023 2 [facility] [id number] Maddy Disla [id number] Maddy Disla Notes Date Note Type Note [...] Sola Cisneros DC [address], [place], [address], [facility] 12/23/2023 13:12:39 OBGyn Episode No OBEpisode recorded.
--- OUTSIDE RECORDS SUMMARY | 2024-02-14 15:02 | XMS_ITS | Continuity of Care Document ---
Author Organization [facility] [place]INAR claire - [place] Address [address] [place] [address] Assessment No assessment recorded. Plan of Treatment [...] Modified By Organization Details Last Modified Time 01/04/2024 18007 functional goals : increase ROM to wnl, 50% decrease pain when sitting for 60 minutes to 1-2/10, 40 minutes decrease geraldo when standing for 60 minutes to 1-2/10, 35 minutes decrease pain when transitioning from sitting to standing to 1-2/10, 4-5/10 mmagnani Not available 01/05/2024 21:21:52 Reason for Referral None Reported. Problems Name Problem SNOMED Code Status Onset Date Resolution Date Notes Provider Name and Address Organization Details Recorded Time Neck pain 16048706 Active 2023 Sola Cisneros [address], [place], [address], [facility] 4 14:35:25 Cervical segmental dysfunction 343230386 Active 2023 Sola Cisneros [address], [place], [address], [facility] 4 14:35:25 Lumbar segmental dysfunction 808507840 Active 2023 Sola Cisneros [address], [place], [address], [facility] 4 18:13:38 Low back pain 864241659 Active 2023 Sola Cisneros [address], [place], [address], [facility] 4 18:13:40 Somatic dysfunction of sacral spine 979378374 Active 2023 Sola Cisneros [address], [place], [address], [facility] 4 18:13:43 Thoracic segmental dysfunction 213769831 Active 2023 Sola Cisneros [address], [place], [address], [facility] 4 18:13:47 Thoracic back pain 629765945 Active 2023 Sola Cisneros [address], [place], [address], [facility] 4 18:13:49 Problem Notes None recorded. Procedures Surgical History Date Name Laterality Status Provider Name and Address Organization Details Recorded Time 4 88780: Spinal manipulation , 3 to 4 regions completed CASH BRIGGS, ED [address], [place], [address], [facility] 01/31/2024 09:01:39 4 46388: Spinal manipulation , 3 to 4 regions completed Sola Amelia [address], [place], [address], [facility] 01/18/2024 13:29:35 4 55151: Spinal manipulation , 3 to 4 regions completed Sola Amelia, DC [address], [place], [address], [facility] 01/11/2024 10:26:34 4 99483: Spinal manipulation , 3 to 4 regions completed Sola Cisneros [address], [place], [address], [facility] 01/04/2024 11:54:22 4 57530: Spinal manipulation , 3 to 4 regions completed Osla Magnani, DC [address], [place], [address], [facility] 12/23/2023 10:22:43 4 86690: Spinal manipulation , 3 to 4 regions completed Sola Magnani, DC [address], [place], [address], [facility] 12/01/2023 10:26:04 4 64241: Spinal manipulation , 3 to 4 regions completed Sola Magnani, DC [address], [place], [address], [facility] 11/17/2023 13:17:18 4 66612: Spinal manipulation , 3 to 4 regions completed Sola Magnani, DC [address], [place], [address], [facility] 10/27/2023 14:35:24 4 93634: Spinal manipulation , 3 to 4 regions completed Sola Magnani, DC [address], [place], [address], [facility] 09/08/2023 10:41:24 4 58907: Spinal manipulation , 3 to 4 regions completed Sola Magnani, [address], [place], [address], [facility] 08/24/2023 12:43:44 4 90876: Spinal manipulation , 3 to 4 regions completed Sola Magnani, [address], [place], [address], [facility] 08/17/2023 12:40:41 08012: Spinal manipulation , 3 to 4 regions completed Sola Magnani, [address], [place], [address], [facility] 08/12/2023 11:53:41 4 38992: New patient E/M completed Sola Magnani, [address], [place], [address], [facility] 08/12/2023 12:00:35 Imaging Results None recorded. Procedure [...] Diagnosis/Indication Diagnosis SNOMED-CT Code Diagnosis ICD10 Code [id number] [facility] [place] [address],[facility] [address] [place] [address] 12/23/2023 12:34:59 12/23/2023 13:12:52 Lumbar segmental dysfunction 816562557 M99.03 Low back pain 623488439 M54.50 Somatic dy sfunction of sacral spine 843581197 M99.04 Thoracic s egmental dysfunction 962616983 M99.02 Thoracic back pain 32674 8004 M54.6 [id number] Sola Cisneros DC [employer] - [place] [address],[facility] [address] [place] [address] 01/04/2024 11:53:13 01/05/2024 21:22:58 Lumbar segmental dysfunction 748030739 M99.03 Low back pain 088387225 M54.50 Somatic dy sfunction of sacral spine 712956724 M99.04 Thoracic s egmental dysfunction 771430617 M99.02 Thoracic back pain 96446 8004 M54.6 Health Concerns Section Related Observation LastModified by Organization Detai ls LastModified Time None Recorded Concern Status LastModified by Organization Details LastModified Time None Recorded Payers Encounter Date Sequence Insurance Name Policy Number Policy Sullivan Covered Member ID Sullivan Member ID Guarantor Name 01/04/2024 1 [place] [email or web address] [facility] Maddy Disla [id number] 5 Maddy Disla 01/04/2024 2 [facility] [id number] Maddy Disla [id number] Maddy Disla Notes Date Note Type Note Provider Name and Address Organization Details Recorded Time 01/04/2024 text/html HPI - Spine ComplaintsReported bypatient.Location:thor [...] Sola Cisneros [address], [place], [address], [facility] 01/05/2024 21:22:19 OBGyn Episode No OBEpisode recorded.
--- OUTSIDE RECORDS SUMMARY | 2024-03-01 13:34 | XMS_ITS | Data Portability ---
Author Organization [place] logoelio claire [facility] Address [address] [facility] [facility] [place] [address] Assessment No assessment recorded. Plan of Treatment Reminders Order Date Submit Date Provider Last Modified By Organization Details Last Modified Time Details Appointments DC Treatment 20 2024 02:00P Basilio Cisneros DC Not available Not available Not available Lab None recorded. Referral None recorded. Procedures None recorded. Surgeries None recorded. Imaging None recorded. Medication Orders None recorded. Patient TargetsNo targets recorded. Patient Instructions Encounter Date Encounter Id Patient Instructions Last Modified By Organization Details Last Modified Time 12/23/2023 [id number] functional goals : increase ROM to wnl, 50% decrease pain when sitting for 60 minutes to 1-2/10, 35 minutes decrease geraldo when standing for 60 minutes to 1-2/10, 35 minutes decrease pain when transitioning from sitting to standing to 1-2/10, 4-6/10 [email or web address] Not available 12/23/2023 13:12:09 01/04/2024 [id number] functional goals : increase ROM to wnl, 50% decrease pain when sitting for 60 minutes to 1-2/10, 40 minutes decrease geraldo when standing for 60 minutes to 1-2/10, 35 minutes decrease pain when transitioning from sitting to standing to 1-2/10, 4-5/10 [email or web address] Not available 01/05/2024 21:21:52 01/11/2024 [id number] functional goals : increase ROM to wnl, 50% decrease pain when sitting for 60 minutes to 1-2/10, 40 minutes decrease geraldo when standing for 60 minutes to 1-2/10, 35 minutes decrease pain when transitioning from sitting to standing to 1-2/10, 4-5/10 [email or web address] Not available 01/11/2024 10:26:34 01/18/2024 [id number] functional goals : increase ROM to wnl, 55% decrease pain when sitting for 60 minutes to 1-2/10, 45 minutes decrease geraldo when standing for 60 minutes to 1-2/10, 40 minutes decrease pain when transitioning from sitting to standing to 1-2/10, 4-5/10 [email or web address] Not available 01/18/2024 13:50:29 02/01/2024 [id number] functional goals : increase ROM to wnl, 55% decrease pain when sitting for 60 minutes to 1-2/10, 45 minutes decrease geraldo when standing for 60 minutes to 1-2/10, 40 minutes decrease pain when transitioning from sitting to standing to 1-2/10, 4-5/10 [email or web address] Not available 01/31/2024 09:01:39 Reason for Referral None Reported. Problems Name Problem SNOMED Code Status Onset Date Resolution Date Notes Provider Name and Address Organization Details Recorded Time Neck pain 11231882 Active 2023 Sola Cisneros DC [address], [place], [address], [facility] 4 14:35:25 Cervical segmental dysfunction 954458417 Active 2023 Sola Cisneros DC [address], [place], [address], [facility] 4 14:35:25 Lumbar segmental dysfunction 076871303 Active 2023 Sola Cisneros DC [address], [place], [address], [facility] 4 18:13:38 Low back pain 280997544 Active 2023 Sola Cisneros DC [address], [place], [address], [facility] 4 18:13:40 Somatic dysfunction of sacral spine 336863872 Active 2023 Sola Cisneros DC [address], [place], [address], [facility] 4 18:13:43 Thoracic segmental dysfunction 968520911 Active 2023 Sola Cisneros DC [address], [place], [address], [facility] 4 18:13:47 Thoracic back pain 151261215 Active 2023 Sola Cisneros DC [address], [place], [address], [facility] 4 18:13:49 Problem Notes None recorded. Procedures Surgical History Date Name Laterality Status Provider Name and Address Organization Details Recorded Time 4 36970: Spinal manipulation , 3 to 4 regions cancelled Sola Cisneros, DC [address], [place], [address], [facility] 02/17/2024 13:34:25 4 11494: Spinal manipulation , 3 to 4 regions completed CASHEctor BRIGGS, ED [address], [place], [address], [facility] 01/31/2024 09:01:39 4 52146: Spinal manipulation , 3 to 4 regions completed Sola Cisneros, DC [address], [place], [address], [facility] 01/18/2024 13:29:35 4 06909: Spinal manipulation , 3 to 4 regions completed Sola Cisneros, DC [address], [place], [address], [facility] 01/11/2024 10:26:34 4 50921: Spinal manipulation , 3 to 4 regions completed Sola Cisneros, DC [address], [place], [address], [facility] 01/04/2024 11:54:22 4 29794: Spinal manipulation , 3 to 4 regions completed Sola Cisneros, DC [address], [place], [address], [facility] 12/23/2023 10:22:43 4 22100: Spinal manipulation , 3 to 4 regions completed Sola Cisneros, DC [address], [place], [address], [facility] 12/01/2023 10:26:04 4 15637: Spinal manipulation , 3 to 4 regions completed Sola Magnani, DC [address], [place], [address], [facility] 11/17/2023 13:17:18 4 26343: Spinal manipulation , 3 to 4 regions completed Sola Magnani, DC [address], [place], [address], [facility] 10/27/2023 14:35:24 4 11979: Spinal manipulation , 3 to 4 regions completed Sola Magnani, DC [address], [place], [address], [facility] 09/08/2023 10:41:24 4 88328: Spinal manipulation , 3 to 4 regions completed Sola Magnani, DC [address], [place], [address], [facility] 08/24/2023 12:43:44 4 28427: Spinal manipulation , 3 to 4 regions completed Sola Magnani, DC [address], [place], [address], [facility] 08/17/2023 12:40:41 4 90098: Spinal manipulation , 3 to 4 regions completed Sola Magnani, DC [address], [place], [address], [facility] 08/12/2023 11:53:41 4 07813: New patient E/M completed Sola Magnani, DC [address], [place], [address], [facility] 08/12/2023 12:00:35 Imaging Results None [...] Diagnosis/Indication Diagnosis SNOMED-CT Code Diagnosis ICD10 Code [id number] Sola CisnerosED [facility] [place] [address] [place] [address] 08/12/2023 11:49:22 08/14/2023 18:15:18 Thoracic segmental dysfunction 684753471 M99.02 Lumbar seg mental dysfunction 590264804 M99.03 Low back pain 489152710 M54.50 Somatic dy sfunction of sacral spine 852262399 M99.04 Thoracic back pain 62525 8004 M54.6 [id number] Solakim Cisneros DC [facility] [place] [address] [place] [address] 08/17/2023 12:39:19 08/17/2023 14:53:13 Thoracic segmental dysfunction 817003094 M99.02 Lumbar seg mental dysfunction 069551380 M99.03 Low back pain 329262574 M54.50 Somatic dy sfunction of sacral spine 886468105 M99.04 Thoracic back pain 83681 8004 M54.6 [id number] Sola ED Cisneros [facility] [place] [address] [place] [address] 08/24/2023 12:41:05 08/24/2023 15:37:56 Thoracic segmental dysfunction 405323820 M99.02 Lumbar seg mental dysfunction 870849268 M99.03 Low back pain 490372296 M54.50 Somatic dy sfunction of sacral spine 090598497 M99.04 Thoracic back pain 66390 8004 M54.6 [id number] Solakim Cisneros DC [facility] [place] [address] [place] [address] 09/08/2023 10:40:07 09/08/2023 15:55:35 Thoracic segmental dysfunction 483899364 M99.02 Lumbar seg mental dysfunction 911556936 M99.03 Low back pain 975377506 M54.50 Somatic dy sfunction of sacral spine 785166832 M99.04 Thoracic back pain 64118 8004 M54.6 [id number] [facility] [place] [address] [place] [address] 10/27/2023 14:32:32 11/02/2023 12:54:59 Thoracic segmental dysfunction 665383587 M99.02 Lumbar seg mental dysfunction 220587471 M99.03 Low back pain 749142374 M54.50 Somatic dy sfunction of sacral spine 572021884 M99.04 Thoracic back pain 88466 8004 M54.6 [id number] [facility] [place] [address] [place] [address] 11/17/2023 11:46:22 11/17/2023 13:19:21 Lumbar segmental dysfunction 238053201 M99.03 Low back pain 708569419 M54.50 Somatic dy sfunction of sacral spine 175624514 M99.04 Thoracic s egmental dysfunction 497793419 M99.02 Thoracic back pain 49257 8004 M54.6 56762 [facility] [place] [address] [place] [address] 12/01/2023 15:46:42 12/01/2023 21:45:03 Lumbar segmental dysfunction 230931540 M99.03 Low back pain 558604781 M54.50 Somatic dy sfunction of sacral spine 740158668 M99.04 Thoracic s egmental dysfunction 718201801 M99.02 Thoracic back pain 21682 8004 M54.6 [id number] [facility] [place] [address] [place] [address] 12/23/2023 12:34:59 12/23/2023 13:12:52 Lumbar segmental dysfunction 623101138 M99.03 Low back pain 382394850 M54.50 Somatic dy sfunction of sacral spine 134307247 M99.04 Thoracic s egmental dysfunction 561126795 M99.02 Thoracic back pain 88861 8004 M54.6 [id number] Sola Cisneros DC [facility] [place] [address] [place] [address] 01/04/2024 11:53:13 01/05/2024 21:22:58 Lumbar segmental dysfunction 297969799 M99.03 Low back pain 179452862 M54.50 Somatic dy sfunction of sacral spine 126364421 M99.04 Thoracic s egmental dysfunction 301389729 M99.02 Thoracic back pain 55880 8004 M54.6 [id number] Sola Cisneros DC [facility] [place] [address] [place] [address] 01/11/2024 12:06:16 01/11/2024 12:30:47 Lumbar segmental dysfunction 495860672 M99.03 Low back pain 873661361 M54.50 Somatic dy sfunction of sacral spine 873826820 M99.04 Thoracic s egmental dysfunction 057747372 M99.02 Thoracic back pain 11108 8004 M54.6 Cervical s egmental dysfunction 253260887 M99.01 [id number] Sola Cisneros DC [facility] [place] [address] [place] [address] 01/18/2024 13:29:02 01/18/2024 13:51:09 Lumbar segmental dysfunction 572836552 M99.03 Low back pain 677430195 M54.50 Somatic dy sfunction of sacral spine 129513230 M99.04 Thoracic s egmental dysfunction 250712884 M99.02 Thoracic back pain 38516 8004 M54.6 [id number] CASH BRIGGS DC [facility] [place] [address] [place] [address] 02/01/2024 12:57:48 02/01/2024 13:17:16 Lumbar segmental dysfunction 106615851 M99.03 Low back pain 532883680 M54.50 Somatic dy sfunction of sacral spine 079958423 M99.04 Thoracic s egmental dysfunction 494393105 M99.02 Thoracic back pain 15059 8004 M54.6 Health Concerns Section Related Observation LastModified by Organization Detai ls LastModified Time None Recorded Concern Status LastModified by Organization Details LastModified Time None Recorded Advance Directives Directive None Recorded Payers Encounter Date Sequence Insurance Name Policy Number Policy Sullivan Covered Member ID Sullivan Member ID Guarantor Name 12/23/2023 1 [place] [employer] Maddy B Naif [id number] Maddy Naif 12/23/2023 2 [place] [id number] Maddy B Naif [id number] Maddy Niaf 01/04/2024 1 [place] [employer] Maddy B Naif [id number] Maddy Naif 01/04/2024 2 [place] [id number] Maddy B Naif [id number] Maddy Naif 01/11/2024 1 [place] [employer] Maddy B Naif [id number] Maddy Naif 01/11/2024 2 [place] [id number] Maddy B Naif [id number] Maddy Naif 01/18/2024 1 MEDICARE [place]: [employer] Maddy B Naif [id number] Maddy Naif 01/18/2024 2 [place] [id number] Maddy B Naif [id number] Maddy Naif 02/01/2024 1 MEDICARE [place]: [employer] Maddy B Naif [id number] Maddy Naif 02/01/2024 2 [place] [id number] Maddy B Naif [id number] Maddy Naif Notes Date Note Type Note [...] SI joints Sola Cisneros DC [address], [place], [address], [employer] 12/23/2023 13:12:39 01/04/2024 text/html HPI - Spine [...] SI joints Sola Cisneros DC [address], [place], [address], [employer] 01/05/2024 21:22:19 01/11/2024 text/html HPI - Spine [...] SI joints Sola Cisneros DC [address], [place], [address], [employer] 01/11/2024 12:29:50 01/18/2024 text/html HPI - Spine [...] several hours Sola Cisneros DC [address], [place], [address], [employer] 01/18/2024 13:50:58 02/01/2024 text/html HPI - Spine [...] in the SI joints. CASH BRIGGS DC [facility] [address], [place], [address], [facility] 02/01/2024 13:17:08 OBGyn Episode No OBEpisode recorded.
--- OUTSIDE RECORDS SUMMARY | 2024-03-01 13:34 | XMS_ITS | Referral Summary ---
Author Organization [facility] Address [address] [place] [address] Care Team Providers Care General Contractor Name Role Phone Elsewhere, Pcp Primary Care Provider Unavailabl e Source Comments Patient records contain information from all sites at [facility]. For routine questions regarding patient records, call [phone] during business hours, M-F 8:00 AM - 5:00 PM Central Time. Record requests for emergency care only can be directed to [phone] at any time.[facility] Encounters Date Type Department Care Team Description 12/05/2023 2:43 PM CDT - 12/05/2023 3:16 PM CDT Emergency [facility] [address] [place] [phone] Dianna Nunn, MIRTA, C.N.P. Other Acute Recurrent Sinusitis (Primary Dx) Discharge Disposition: Home or Self Care from Last 3 Months Allergies Active Allergy Reactions Criticality Noted Date Comments Oxycodone Itching 02/19/2013 Penicillins Rash 02/19/2013 Medications ASPIRIN ORAL Take 1 tablet by mouth daily. 3 Active levothyroxine (SYNTHROID, LEVOTHROID) 88 mcg tablet Take 1 tablet by mouth daily. 3 Active triamterene-hyd roCHLOROthiazid e (for_MAXZIDE-25 ) 37.5-25 mg per tablet Take 1 tablet by mouth daily. 3 Active simvastatin (ZOCOR) 40 mg tablet Take 40 mg by mouth at bedtime. 1 Active metFORMIN XR (GLUCOPHAGE-XR) 500 mg 24 hr tablet TAKE ONE TABLET BY MOUTH ONCE DAILY WITH A MEAL 1 Active citalopram (CeleXA) 20 mg tablet Take 20 mg by mouth daily. 1 Active omeprazole (PriLOSEC) [address] capsule Take 20 mg by mouth. 4 Active lancets Test 1 times per day. Dispense as written 3 Active estradioL (Estrace) 0.1 mg/g (0.01%) vaginal cream APPLY A SMALL DAB AT VAGINAL ENTRANCE EVERY NIGHT FOR 2 WEEKS AND THEN TWICE A WEEK, DO NOT USE APPLICATOR 8 Active blood sugar diagnostic (Accu-Chek SmartView Test Strip) strips Dispense test strips covered by the patient insurance. Test 1 times per day. Dispense as written 1 Active biotin 5 mg tablet Take by mouth. 0 Active albuterol 90 mcg/actuation inhalerIndicati ons:Cough Acute Inhale 2 puffs every 6 (six) hours as needed for wheezing. 18 g 2 Active buPROPion (WELLBUTRIN) 75 mg tablet TAKE ONE TABLET BY MOUTH TWO TIMES DAILY, BASED ON UPDATED ISMP GUIDELINES, DO NOT CRUSH OR CHEW 3 Active DULoxetine (CYMBALTA) [address] capsule TAKE ONE CAPSULE BY MOUTH ONCE DAILY FOR 2 WEEKS, THEN INCREASE TO TWO CAPSULES DAILY 4 Active fluticasone propionate (FLONASE) 50 mcg/actuation nasal spray APPLY TWO SPRAYS IN THE AFFECTED NOSTRIL(S) EVERY DAY 4 Active Active Problems Problem Noted Date Diagnosed Date Pain Hip Right Immunizations Name Administration Dates Next Due HZV (ZOSTAVAX) 04/02/2009 Influenza TIV (IM) 11/14/2018, 8,12/21/2016, 003 Influenza high dose QV(65 ye ars or older) (PF) 10/24/2019 Influenza, Seasonal, Injectable 02/06/2003 PCV13 01/14/2015 PPSV23 12/06/2006 SARS-COV-2 (COVID-19) - PFIZ ER (Discontinued)(12 years or older) 04/15/2020,03/25/2020 Td (Adult), adsorbed 11/21/2002 Tdap 05/02/2018 influenza trivalent high dos e (HD)(PF) 02/02/2016,01/14/2015 Social History Tobacco Use Types Packs/Day Years Used Date Smoking Tobacco: Former Cigarettes Passive Smoke Exposure: Past Smokeless Tobacco: Never Tobacco Cessation:Counseling Given: Not Answered Alcohol Use Standard Drinks/Week Comments Yes 0 (1 standard drink = 0.6 oz pur e alcohol) Occasional Nutrition Answer Date Recorded Nutrition: EVOO Fat Source 13 09/24 Nutrition: Servings of Fruits/Vegetables per Day Not on file 09/25/2019 Dental Answer Date Recorded Dental: Regular Dentist Unknown 05/03/19 21 Comments No Sex and Gender Information Value Date Recorded Sex Assigned at Not on file 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 Gender Identity Not on file Sexual Orientation Not on file Last Filed Vital Signs Vital Sign Reading Time Taken Comments Blood Pressure 129/75 12/05/2023 2:15 PM CDT Pulse 104 12/05/2023 2:15 PM CDT Temperature 36.7 C (98.1 F) 12/05/2023 2:15 PM CDT Respiratory Rate 20 12/05/2023 2:15 PM CDT Oxygen Saturation 95% 12/05/2023 2:15 PM CDT Inhaled Oxygen Concentration - - Weight 79.9 kg (176 lb 1.6 oz) 12/05/2023 2:17 P M CDT Height 163.8 cm (5' 4.5) 12/05/2023 2:17 PM CDT Body Mass Index 29.76 12/05/2023 2:17 PM CDT Plan of Treatment Not on file Procedures Procedure Name Priority Date/Time Associated Diagnosis Comments IFLU A, B, SARS COV-2, PCR, RAPID,V STAT 12/05/2023 2:19 PM CDT from Last 3 Months Results * Influenza A/B, SARS CoV-2, PCR, Rapid Symptomatic (12/05/2023 2:19 PM CDT) Influenza A, PCR, Rapid, V Negative Negative 12/05/2023 2:02 PM CDT NPRG Influenza B, PCR, Rapid, V Negative Negative 12/05/2023 2:02 PM CDT NPRG SARS CoV-2, PCR, Rapid, V Undetected Undetected 12/05/2023 2:02 PM CDT NPRG Infl A/B, SARS CoV-2, PCR, Source Swab, Nasopharynx 12/05/2023 2:22 PM CDT NPRG Swab (Nasopharynx) 12/05/2023 2:19 PM CDT 12/05/2023 2:22 PM CDT us Dianna Nunn APRN, C.N.P. LAB MICROBIOLOGY - NERAL ORDERABLES Final Result [facility] [address] [place] [address], [place] NPRG [facility] [address] [place] [address] from Last 3 Months Insurance MEDICARE [facility] Care Teams General Contractor Relationship Specialty Start Date End Date Elsewhere, Pcp PCP - General Internal Medicine 11/25/21
--- OUTSIDE RECORDS SUMMARY | 2024-03-01 13:34 | XMS_ITS ---
Author Organization [facility] Address [address] [place] [address] Care Team Providers Care Cue Worker Name Role Phone Unavailable Unavailable Unavailable Surgery Details Not on file Complications Check Surgery Details section. Procedure Estimated Blood Loss Check Surgery Details section. Procedure Findings Check Surgery Details section. Procedure Specimens Taken Check Surgery Details section.
--- OUTSIDE RECORDS SUMMARY | 2024-03-01 13:34 | XMS_ITS | Clinical Summary ---
Author Organization [facility] Address [address], [place] [address] Care Team Providers Care Drill Sergeant Name Role Phone Tisha Andrews MD Primary Care Provider Unavail able Source Comments You are receiving this document as you are listed as the primary care provider,follow-up provider, or the patient has been referred to you for consultation.This is in compliance with the Medicare andMedicaid EHR Incentive Program,which states Providers who transition their patient to another setting of careor provider of care or refers their patient to another provider of care shouldprovide summary care record for each transition of care or referral. [employer] Allergies Active Allergy Reactions Criticality Noted Date Comments Oxycodone 02/08/2017 Penicillins 02/08/2017 Medications Medication Sig Dispensed Refills Start Date End Date Status citalopram (CELEXA) 20 MG tablet Take 20 mg by mouth daily. 0 12/20/2017 Active ESTRACE VAGINAL 0.1 MG/GM vaginal cream APPLY A SMALL DAB AT VAGINAL ENTRANCE EVERY NIGHT FOR 2 WEEKS AND THEN TWICE A WEEK, DO NOT USE APPLICATOR 3 12/22/2017 Active levothyroxine (SYNTHROID) 75 MCG tablet Take 75 mcg by mouth daily. 3 12/19/2017 Active metFORMIN XR (GLUCOPHAGE XR) 500 MG 24 hour release tablet TAKE ONE TABLET BY MOUTH ONCE DAILY WITH THE EVENING MEAL. 4 10/19/2017 Active simvastatin (ZOCOR) 40 MG tablet Take 40 mg by mouth daily at bedtime. 0 11/07/2017 Active triamterene-hydrochlor othiazide (MAXZIDE-25) 37.5-25 MG tablet Take 1 Tablet by mouth daily. 0 12/20/2017 Active methylPREDNISolone (MEDROL 21 TABLET DOSEPACK) 4 MG tabletIndications:Pain of right hand,Primary osteoarthritis of first carpometacarpal joint of one hand,Bilateral carpal tunnel syndrome Follow package directions 21 Tablet 01/10/2018 Active Active Problems No known active problems Social History Tobacco Use Types Packs/Day Years Used Date Smoking Tobacco: Never Smokeless Tobacco: Never Sex and Gender Information Value Date Recorded Sex Assigned at Not on file Gender Identity Not on file Sexual Orientation Not on file Last Filed Vital Signs Vital Sign Reading Time Taken Comments Blood Pressure - - Pulse - - Temperature 36.5 C (97.7 F) 01/10/2018 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 Respiratory Rate - - Oxygen Saturation - - Inhaled Oxygen Concentration - - Weight 84.8 kg (187 lb) 01/10/2018 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 Height 162.6 cm (5' 4) 01/10/2018 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 Body Mass Index 32.1 01/10/2018 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 Plan of Treatment Health Maintenance Due Date Last Done Comments Medicare Annual Wellness Visit 1940 Dexa 2005 Zoster/Shingles (2 of 3) 05/28/2009 04/02/2009 RSV (1 - 1-dose 75+ series) 12/26/2015 COVID-19 Vaccine (3 - season) 2023 04/15/2020, 03/25/2020 Influenza (#1) 2023 10/24/2019, 10/29, 12/21/2017, Additional history exists DTaP/Tdap/Td (2 - Tdap) 05/02/2028 05/02/2018, 11/21 Pneumococcal 65+ Yrs Completed 01/14/2015, 12/07/19 07 HepA Aged Out No longer eligi ble based on patient's age to complete this topic HepB Aged Out No longer eligi ble based on patient's age to complete this topic Hib Aged Out No longer eligi ble based on patient's age to complete this topic IPV (Polio) Aged Out No longer eligi ble based on patient's age to complete this topic MCV4 Aged Out No longer eligi ble based on patient's age to complete this topic Care Teams Drill Sergeant Relationship Specialty Start Date End Date Tisha Andrews MD PCP - General Internal Medicine 02/03/17
--- OUTSIDE RECORDS SUMMARY | 2024-03-01 13:34 | XMS_ITS | Continuity of Care Document ---
Author Organization [facility] - [place] Address [address] [place] [address] Assessment No assessment recorded. Plan of Treatment Reminders Order Date Submit Date Provider Last Modified By Organization Details Last Modified Time Details Appointments DC Treatment 20 2024 02:00P M Sola Cisneros DC Not available Not available Not available Lab None recorded. Referral None recorded. Procedures None recorded. Surgeries None recorded. Imaging None recorded. Medication Orders None recorded. Patient TargetsNo targets recorded. Patient Instructions Encounter Date Encounter Id Patient Instructions Last Modified By Organization Details Last Modified Time 02/01/2024 [id number] functional goals : increase ROM to wnl, 55% decrease pain when sitting for 60 minutes to 1-2/10, 45 minutes decrease geraldo when standing for 60 minutes to 1-2/10, 40 minutes decrease pain when transitioning from sitting to standing to 1-2/10, 4-5/10 [email or web address] Not available 01/31/2024 09:01:39 Reason for Referral None Reported. Problems Name Problem SNOMED Code Status Onset Date Resolution Date Notes Provider Name and Address Organization Details Recorded Time Neck pain 81466045 Active 2023 Sola Cisneros DC [address], [place], [address], [facility] 4 14:35:25 Cervical segmental dysfunction 374143708 Active 2023 Sola Cisneros DC [address], [place], [address], [facility] 4 14:35:25 Lumbar segmental dysfunction 610876325 Active 2023 Sola Cisneros DC [address], [place], [address], [facility] 4 18:13:38 Low back pain 338068755 Active 2023 Sola Cisneros DC [address], [place], [address], [facility] 4 18:13:40 Somatic dysfunction of sacral spine 891726554 Active 2023 Sola Cisneros ED [address], [place], [address], [facility] 4 18:13:43 Thoracic segmental dysfunction 771320641 Active 2023 Sola Cisneros ED [address], [place], [address], [facility] 4 18:13:47 Thoracic back pain 194756877 Active 2023 Sola Cisneros ED [address], [place], [address], [facility] 4 18:13:49 Problem Notes None recorded. Procedures Surgical History Date Name Laterality Status Provider Name and Address Organization Details Recorded Time 4 03033: Spinal manipulation , 3 to 4 regions cancelled Sola CisnerosED [address], [place], [address], [facility] 02/17/2024 13:34:25 4 80870: Spinal manipulation , 3 to 4 regions completed CASH BRIGGS DC [address], [place], [address], [facility] 01/31/2024 09:01:39 4 30116: Spinal manipulation , 3 to 4 regions completed Sola Cisneros DC [address], [place], [address], [facility] 01/18/2024 13:29:35 4 78271: Spinal manipulation , 3 to 4 regions completed Sola Cisneros DC [address], [place], [address], [facility] 01/11/2024 10:26:34 4 51242: Spinal manipulation , 3 to 4 regions completed Sola Magnani, DC [address], [place], [address], [facility] 01/04/2024 11:54:22 4 04354: Spinal manipulation , 3 to 4 regions completed Sola Magnani, DC [address], [place], [address], [facility] 12/23/2023 10:22:43 4 33035: Spinal manipulation , 3 to 4 regions completed Sola Magnani, DC [address], [place], [address], [facility] 12/01/2023 10:26:04 4 46233: Spinal manipulation , 3 to 4 regions completed Sola Magnani, DC [address], [place], [address], [facility] 11/17/2023 13:17:18 4 74700: Spinal manipulation , 3 to 4 regions completed Sola Magnani, DC [address], [place], [address], [facility] 10/27/2023 14:35:24 4 40978: Spinal manipulation , 3 to 4 regions completed Sola Magnani, DC [address], [place], [address], [facility] 09/08/2023 10:41:24 4 57378: Spinal manipulation , 3 to 4 regions completed Sola Magnani, DC [address], [place], [address], [facility] 08/24/2023 12:43:44 4 29013: Spinal manipulation , 3 to 4 regions completed Sola Magnani, DC [address], [place], [address], [facility] 08/17/2023 12:40:41 4 84397: Spinal manipulation , 3 to 4 regions completed Sola Magnani, DC [address], [place], [address], [facility] 08/12/2023 11:53:41 4 76713: New patient E/M completed Sola Magnani, DC [address], [place], [address], [facility] 08/12/2023 12:00:35 Imaging Results None [...] Diagnosis/Indication Diagnosis SNOMED-CT Code Diagnosis ICD10 Code [id number] ED RouseJorge - [place] [address],[facility] [address] [place] [address] 01/04/2024 11:53:13 01/05/2024 21:22:58 Lumbar segmental dysfunction 933812222 M99.03 Low back pain 350931326 M54.50 Somatic dy sfunction of sacral spine 605115072 M99.04 Thoracic s egmental dysfunction 982930889 M99.02 Thoracic back pain 78628 8004 M54.6 [id number] [facility]ola [facility]os [facility] [place] [address],[facility] [address] [place] [address] 01/11/2024 12:06:16 01/11/2024 12:30:47 Lumbar segmental dysfunction 404243475 M99.03 Low back pain 934344453 M54.50 Somatic dy sfunction of sacral spine 269625107 M99.04 Thoracic s egmental dysfunction 525690801 M99.02 Thoracic back pain 42754 8004 M54.6 Cervical s egmental dysfunction 896836731 M99.01 [id number] Sola Cisneros DC [facility] [place] [address] [place] [address] 01/18/2024 13:29:02 01/18/2024 13:51:09 Lumbar segmental dysfunction 203261971 M99.03 Low back pain 340740156 M54.50 Somatic dy sfunction of sacral spine 538852166 M99.04 Thoracic s egmental dysfunction 292463618 M99.02 Thoracic back pain 04902 8004 M54.6 [id number] CASH BRIGGS DC [facility] [place] [address],[facility] [address] [place] [address] 02/01/2024 12:57:48 02/01/2024 13:17:16 Lumbar segmental dysfunction 902646699 M99.03 Low back pain 098757481 M54.50 Somatic dy sfunction of sacral spine 408881626 M99.04 Thoracic s egmental dysfunction 885593845 M99.02 Thoracic back pain 55262 8004 M54.6 Health Concerns Section Related Observation LastModified by Organization Detai ls LastModified Time None Recorded Concern Status LastModified by Organization Details LastModified Time None Recorded Payers Encounter Date Sequence Insurance Name Policy Number Policy Sullivan Covered Member ID Sullivan Member ID Guarantor Name 02/01/2024 1 [place]ICARE [place]: [employer] Maddy Disla [id number] Maddy Disla 02/01/2024 2 [facility] [id number] Maddy Disla [id number] Maddy Disla Notes Date Note Type Note [...] in the SI joints. CASH BRIGGS DC [facility] [address], [place], [address], [facility] 02/01/2024 13:17:08 OBGyn Episode No OBEpisode recorded.
--- OUTSIDE RECORDS SUMMARY | 2024-03-01 13:34 | XMS_ITS | Clinical Summary ---
Author Organization [facility] Address [place], [place] [address] Care Team Providers Care Watch Parts Grinder Name Role Phone Facundo Huang RN, Bridget Marie PA Primary Care Provider Allergies Active Allergy Reactions Criticality Noted Date Comments Oxycodone Itching 04/25/2012 Penicillins Rash Medications omeprazole (PRILOSEC) 20 mg capsule Take 1 capsule by mouth once daily before a meal. 0 03/06/19 14 Active cholecalciferol (VITAMIN D3) 1,000 unit capsule Take 1 capsule by mouth once daily. 0 05/23/19 15 Active Biotin 5 mg tab Take by mouth. 0 02/15/20 20 Active blood sugar diagnostic (Accu-Chek SmartView Test Strip) stripIndications :Type 2 diabetes mellitus without complication, without long-term current use of insulin (HC) Dispense test strips covered by the patient insurance. Test 1 times per day. Dispense as written 100 Each 3 10/22/19 21 Active lancets (Accu-Chek FastClix Lancing Dev)Indications: Type 2 diabetes mellitus without complication, without long-term current use of insulin (HC) Test 1 times per day. Dispense as written 100 Each 3 10/22/19 21 Active clotrimazole-bet amethasone cream (LOTRISONE) 1-0.05 % creamIndications :Tinea Apply topically to affected area(s) 2 times daily. 45 g 3 02/25/20 21 Active albuterol HFA (PRO-AIR; VENTOLIN; PROVENTIL) 90 mcg/actuation inhaler Inhale 2 Puffs by mouth every 6 hours if needed. 06/22/19 22 Active HYDROcodone-acet aminophen (NORCO) 5-325 mg per tabletIndication s:Chronic midline low back pain without sciatica Take 1 tab twice daily as needed for pain. Max acetaminophen dose: 4000 mg in 24 hrs. 14 Tablet 01/28/20 22 Active buPROPion 75 mg tabletIndication s:Depression, major, single episode, moderate (HC) Take 1 Tablet (75 mg) by mouth two times daily. Based on updated ISMP guidelines, DO NOT crush or chew. 180 Tablet 3 03/02/19 24 Active estradioL (ESTRACE) 0.01% (0.1 mg/g) vaginal creamIndications :Atrophic vaginitis Insert 1 g into the vagina once weekly. 42.5 g 3 03/02/19 24 Active levothyroxine (SYNTHROID) 88 mcg tabletIndication s:Hypothyroidism , unspecified type Take 1 Tablet (88 mcg) by mouth once daily. 90 Tablet 3 03/02/19 24 Active metFORMIN (GLUCOPHAGE XR) 500 mg Extended-Release tabletIndication s:Controlled type 2 diabetes mellitus without complication, without long-term current use of insulin (HC) Take 1 Tablet (500 mg) by mouth once daily with a meal. 90 Tablet 3 03/02/19 24 Active simvastatin (ZOCOR) 40 mg tabletIndication s:Elevated cholesterol Take 1 Tablet (40 mg) by mouth at bedtime. 90 Tablet 3 03/02/19 24 Active triamterene-hydr ochlorothiazide, 37.5-25 mg, (MAXZIDE-25) 37.5-25 mg tabletIndication s:Essential hypertension Take 1 Tablet by mouth every morning. 90 Tablet 3 03/02/19 24 Active fluticasone (50 mcg per actuation) nasal solution (FLONASE)Indicat ions:Acute non-recurrent maxillary sinusitis Inhale 2 Sprays to both nostrils once daily. 16 g 03/02/19 24 Active blood-glucose meterIndications :Type 2 diabetes mellitus without complication, without long-term current use of insulin (HC) Dispense meter covered by pts insurance. 1 Each 06/22/19 24 Active blood sugar diagnostic (Blood Glucose Test) stripIndications :Type 2 diabetes mellitus without complication, without long-term current use of insulin (HC) Test 1 times per day. 100 Each 12 06/22/19 Active lancetsIndicatio ns:Type 2 diabetes mellitus without complication, without long-term current use of insulin (HC) As directed. Test 1 times per day. 100 Each 06/22/19 24 Active DULoxetine (CYMBALTA) 30 mg Delayed-release capsuleIndicatio ns:Depression, major, single episode, moderate (HC) TAKE ONE CAPSULE BY MOUTH ONCE DAILY FOR 2 WEEKS, THEN INCREASE TO TWO CAPSULES DAILY 180 Capsule 1 09/20/19 24 Active DULoxetine (CYMBALTA) 60 mg Delayed-release capsuleIndicatio ns:Depression, recurrent (HC),Anxiety,Oth er chronic pain Take 1 Capsule (60 mg) by mouth once daily. Take in addition to 30 mg once daily for total of 90 mg daily. 90 Capsule 3 10/11/19 24 Active DULoxetine (CYMBALTA) 30 mg Delayed-release capsuleIndicatio ns:Depression, recurrent (HC),Anxiety,Oth er chronic pain Take 1 Capsule (30 mg) by mouth once daily. Take in addition to 60 mg once daily for total of 90 mg daily. 90 Capsule 3 10/11/19 24 Active Active Problems Patient Care Coordination No te Formatting of this note migh t be different from the original. Having a good quality of life is what matters most to Maddy La. Maddy La would like her care team to know that she is a people person. What are Maddy La's challenges, stressors, or barriers? 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 SUSHMA on left: 1.27 with no drop with exercise. 02/23/2005: MR angiogram of LE's: 50-70% stenosis of right common iliac artery. 01/14/2015: SUSHMA on right: 0.97 posterior tibial, 1.05 dorsalis pedis. SUSHMA on left: 1.0 posterior tibial, 0.98 dorsalis pedis. Exercise portion not done. Lumbar disc disease with radiculopathy Resolved Problems Problem Noted Date Diagnosed Date Resolved Date Impaired glucose tolerance 05/22/2012 0 07/05/2012 Peripheral vascular disease, unspecified 05/01/2012 Lumbago 09/02/2016 Diabetes mellitus 04/22/2015 Encounters Date Type Department Care Team Description 02/08/2024 10:00 AM LIGHT BULB TESTER Office Visit [address] [address] Trang Mcfarlane PsyD, JEISON Individual Therapy; Trmt Plan 02/08/2024 Travel 01/11/2024 12:00 PM LIGHT BULB TESTER Office Visit [address] [address] Trang Mcfarlane PsyD, LP Individual Therapy 01/11/2024 Travel 12/28/2023 1:00 PM CDT Office Visit [address] [address] Trang Mcfarlane PsyD, LP Individual Therapy 12/28/2023 Travel from Last 3 Months Immunizations Name Administration Dates Next Due Amb Influenza, Inact (High-d ose Quadrivalent) (Flu Clinic Only) 10/24/2019 COVID-19 vaccine ([employer] NTech 30mcg/0.3mL) 12YO+ BIVALENT PF, MDV 01/27/2022 COVID-19 vaccine ([employer] NTech 30mcg/0.3mL) PF, MDV 04/15/2020,03/25/2020 Influenza Virus, Unspecified 02/06/2003 Influenza, High-dose Inactivated 02/02/2016,12/29 Influenza, IIV3 (Age >=3 years) 02/06/2003 Influenza, Inactivated AIIV4 (Age 65+ Years) Preserv Free 12/23/2021,01/08/2021 Influenza, Inactivated IIV3 (Age 65+ Years) Preserv Free 11/14/2018,12/21/2017,12/21/2016 Pneumococcal Poly,23-Valent (Pneumovax) 12/07/19 07 Pneumococcal conj 13-Valent (Prevnar 13) 015 Td (Age >=7 Years) 11/21/2002 Tdap 05/02/2018 Zoster (Zostavax-ZVL, live) 04/02/2009 Family History Medical History Relation Name Comments Other Father at 88 of l seymour cancer Stroke Maternal Grandfather Stroke Maternal Grandmother Cancer-breast Mother Diabetes Mother Heart Disease Mother pacemaker Other Mother at 74 Stroke Mother Diabetes Sister Heart Disease Sister ID at 62 Other Sister Has had AAA rep air Relation Name Status Comments Daughter 1 Alive Daughter 2 Alive Father Maternal Grandfather Maternal Grandmother Mother Paternal Grandfather Paternal Grandmother Sister Alive Social History Tobacco Use Types Packs/Day Years Used Date Smoking Tobacco: Former Cigarettes 1 50 0 02/28/1958 - 02/29/2008 Smokeless Tobacco: Never Tobacco Cessation:Counseling Given: Yes Comments:quit 4 years ago Alcohol Use Standard Drinks/Week Comments Yes 0 (1 standard drink = 0.6 oz pur e alcohol) once a month [facility] Utilities Answer Date Recorded Do you have trouble paying f or utilities (for example, heat, electricity, water, phone)? Yes 03/02/2023 PHQ-2 Answer Date Recorded PHQ-2 TOTAL SCORE 6 03/02/2023 Social Connections Answer Date Recorded Do you often feel lonely or isolated from those around you? 4 03/02/2023 Financial Resource Strain Answer Date R ecorded Difficulty of Paying Living Expenses 3 03/02/2023 Difficulty of Paying Living Expenses Not on file 03/02/2023 Food Insecurity Answer Date Recorded Do you worry your food will run out before you are able to buy more? 1 03/02/2023 Transportation Needs Answer Date Record ed Does lack of transportation keep you from medica l appointments? 1 03/02/2023 Does lack of transportation keep you from work, meetings or getting things that you need? 1 03/02/2023 Housing Stability Answer Date Recorded What is your housing situation today? 1 03/02/2023 Comments No Sex and Gender Information Value Date Recorded Sex Assigned at Not on file Legal Sex Female 5:39 AM LIGHT BULB TESTER Gender Identity Not on file Sexual Orientation Not on file Obstetrics History Last Filed Vital Signs Vital Sign Reading Time Taken Comments Blood Pressure 111/73 10/11/2023 10:56 AM CDT Pulse 90 10/11/2023 10:56 AM CDT Temperature 36.9 C (98.5 F) 09/14/2021 8:23 AM CDT Respiratory Rate 18 05/22/2014 3:04 PM CDT Oxygen Saturation 94% 10/11/2023 10:56 AM CDT Inhaled Oxygen Concentration - - Weight 79.8 kg (176 lb) 10/11/2023 10:56 AM CDT Height 161 cm (5' 3.39) 03/02/2023 3:03 PM LIGHT BULB TESTER Body Mass Index 30.8 03/02/2023 3:03 PM LIGHT BULB TESTER Plan of Treatment Upcoming Encounters Date Type Department Care Team (Late st Contact Info) Description 03/02/2024 11:00 AM LIGHT BULB TESTER Office Visit [address] [address] Trang Mcfarlane PsyD, JEISON [address] [place] [address] 03/16/2024 11:00 AM LIGHT BULB TESTER Office Visit [address] [address] Trang Mcfarlane PsyD, JEISON [address] [place] [address] 03/30/2024 11:00 AM LIGHT BULB TESTER Office Visit [address] [address] Trang Mcfarlane PsyD, JEISON [address] [place] [address] Health Maintenance Due Date Last Done Comments Zoster (shingles) series for age 50+ (2 of 3) 05/28/2009 04/02/2009 RSV vaccine for adults or (1 - 1-dose 75+ series) 12/26/2015 COVID-19 vaccine series ( season) 2023 07/11/2023, 01/27/2022, 11/26/2020, Additional history exists Influenza for age 65+ 10/30/2023 12/23/2021 , 01/08/2021, 10/24/2019, Additional history exists BMI (ht and wt on same day) for age 18+ 03/02/2024 03/02/2023, 01/27/2022, 09/14/2021, Additional history exists Depression screening for age 12+ 03/02/2024 03/02/2023, 01/29/2022, 01/27/2022, Additional history exists Medicare Wellness for age 65+ 03/02/2024, 01/27/2022, 02/15/2020, Additional history exists Tetanus booster 05/02/2028 05/02/2018, 11/21/2002 Pneumococcal series for age 50+ Completed 5, 12/06/2006 Tdap Completed 05/02/2018 DEXA/DXA scan for age 65+ Completed 01/27/2022 Procedures Procedure Name Priority Date/Time Associated Diagnosis Comments XR DXA BONE DENSITY 2 SITES AXIAL Routine 01/27/2022 3:37 PM LIGHT BULB TESTER Osteoporosis screening Postmenopausal symptoms from Last 3 Months or Most Recently Relevant to Health Maintenance Results * (ABNORMAL) XR DXA BONE DENSITY 2 SITES AXIAL (01/27/2022 3:37 PM LIGHT BULB TESTER) Anatomical Region Laterality Modality Spine, HIPS, HIPL, HIPR Other Impressions 01/27/2022 4:24 PM LIGHT BULB TESTER Osteopenia. RECOMMENDATIONS: The National Osteoporosis Foundation recommends pharmacologic treatment for patients with T-scores of -2.5 or less, patients with prior history of fragility fractures, or patients with 10-year probability of greater than 3% at hips or greater than 20% of suffering major osteoporotic fractures. Recommend continued optimization of calcium and vitamin D intake through dietary means and/or supplementation and regular exercise. Repeat scan recommended in 3-5 years. Johanne Young PA-C [facility] 01/27/2022 Narrative 01/27/2022 4:24 PM LIGHT BULB TESTER For Patients: Results are automatically released to your [employer]) account once available, in compliance with federal regulations. This means that you may see your results before your provider has had a chance to review them. Please allow 2-3 business days for your provider to comment on the results. XR DXA Bone Mineral Density (BMD) EXAM LOCATION: [facility] [address] [facility] [address] PATIENT NAME: Maddy Disla DATE OF : 1940 EXAM DATE: 01/27/2022 REQUESTING PROVIDER: Johanne Young PA GENDER AT : female HEIGHT: 5' 3.39 (01/27/2022) WEIGHT: 183 lb (01/27/2022) MENOPAUSAL STATUS: Postmenopausal RACE/ETHNICITY: White RISK FACTORS: Smoking (prior) and White Race CURRENT MEDICATION FOR BONE LOSS: NONE INDICATION: Screening for osteoporosis COMPARISON DATE(S): None DXA scans are compared to prior studies for a patient only when the two (or more) studies were performed on the same scanner. It is not possible to compare data generated on one scanner to data from another because there are not standards in DXA equipment. This applies even if the two scanners are made by the same drying unit felting machine operator. PROCEDURE: Dual-energy x-ray absorptiometry performed with routine technique. Reporting is completed in the form of a T-score. The T-score represents the standard deviation from peak bone mass based on young healthy adult. A Z-score is used for diagnosis in premenopausal women, and for men under the age of 50. FINDINGS: RESULT LUMBAR SPINE L2 - L3 BMD: 1.459 g/cm2 T-Score: + 2.0 Z-Score: + 3.2 Change from prior: None RESULTS FEMUR Left femoral neck BMD: 0.875 g/cm2 T-Score: - 1.2 Z-Score: + 0.6 Change from prior: None Right femoral neck BMD: 0.971 g/cm2 T-Score: - 0.5 Z-Score: + 1.3 Change from prior: None Left hip BMD: 0.996 g/cm2 T-Score: - 0.1 Z-Score: + 1.5 Change from prior: None Right hip BMD: 1.096 g/cm2 T-Score: + 0.7 Z-Score: + 2.3 Change from prior: None WHO criteria: Normal: T-score at or above -1 SD Osteopenia: T-score between -1.1 and -2.4 SD Osteoporosis: T-score at or below -2.5 SD FRAX RISK CALCULATION (USED FOR OSTEOPENIA ONLY): 10-year probability of major osteoporotic fracture: 11.6%. 10-year probability of hip fracture: 2.4%. Johanne MOCK DEXA Final R esult from Last 3 Months or Most Recently Relevant to Health Maintenance Insurance MEDICARE PART B HB ONLY MEDICARE PB ONLY [facility] Care Teams Watch Parts Grinder Relationship Specialty Start Date End Date Johanne Young PA [address] [place] [address] PCP - General Physician Clinical Trials Assistant 01/16/21 Facundo Huang, RN Registered Nurse Registered Nurse 02/26/20
--- OUTSIDE RECORDS SUMMARY | 2024-03-01 13:34 | XMS_ITS | Clinical Summary ---
Author Organization [facility] Address [address] [place] [address] Care Team Providers Care Vice President Integrated Name Role Phone Elsewhere, Pcp Primary Care Provider Unavailabl e Source Comments Patient records contain information from all sites at [facility]. For routine questions regarding patient records, call [phone] during business hours, M-F 8:00 AM - 5:00 PM Central Time. Record requests for emergency care only can be directed to [phone] at any time.[facility] Allergies Active Allergy Reactions Criticality Noted Date [...] Noted Date Diagnosed Date Pain Hip Right Encounters Date Type Department Care Team Description 12/05/2023 2:43 PM CDT - 12/05/2023 3:16 PM CDT Emergency [facility] [address] [place] [phone] Dianna Nunn, MIRTA, C.N.P. Other Acute Recurrent Sinusitis (Primary Dx) Discharge Disposition: Home or Self Care from Last 3 Months Immunizations Name Administration Dates Next Due HZV [...] on file Legal Sex Female 4:50 PM TRAMPOLINE TEAM COACH Gender Identity Not on file Sexual Orientation [...] 12/05/2023 2:17 PM CDT Plan of Treatment Health Maintenance Due Date Last Done Comments Zoster Vaccines (2 of 3) 05/28/2009 04/02/2009 RSV vaccine - (32-36 weeks) or 60+ years (1 - 1-dose 75+ series) 12/26/2015 Depression Screening (Annual PHQ-2) 02/28/2023 Fall Risk Screen (Annual) 02/28/2023 COVID-19 Vaccine ( season) 2023 01/27/2022, 11/26/2020, 04/15/2020, Additional history exists Influenza Vaccine (#1) 2023 2, 01/08/2021, 10/24/2019, Additional history exists Thyroid Stimulating Hormone (TSH) test for thyroid function 03/02/2024 03/02/2023, 08/03/2021, 10/21/2020, Additional history exists DTaP,Tdap,and Td Vaccines (2 - Td or Tdap) 05/02/2028 05/02/2018, 11/21/2002 Pneumococcal vaccine (50+ years) Completed 01/14/2015, 12/06/2006 IPV Vaccines Aged Out No longer eligi ble based on patient's age to complete this topic Procedures Procedure Name Priority Date/Time Associated Diagnosis [...] Dianna Nunn APRN, C.N.P. LAB MICROBIOLOGY - GE NERAL ORDERABLES Final Result [facility] [address] [place] [address], [facility] [address] [place] [address] from Last 3 Months Insurance MEDICARE [facility] Care Teams Vice President Integrated Relationship Specialty Start Date End Date Elsewhere, Pcp PCP - General Internal Medicine 11/25/21
== END 2024-04-04 16:22 | disposition home or self-care (01) ==
PROVIDERS: PCP Physician Assistant Medical; Visit Provider Physician Assistant Medical
DX: M51.16 Intervertebral disc disorders with radiculopathy, lumbar region (principal); R53.1 Weakness; R26.81 Unsteadiness on feet; Z51.89 Encounter for other specified aftercare
CPT/HCPCS: 97012; 97032; 97110; 97140; 97162; 97535